=== PATIENT | male | born 1935 | race Caucasian/White ===

== ENCOUNTER → 2016-06-07 | Outpatient (CLI) | payer BC ==
[~2016-06-07] MED LIST: ASPCH81X PO; CMD3 PO; CRG125 PO; LISI-729 PO; NORT25CA PO; SIMV20TA2 PO
[2016-06-07 13:16] LABS: INR 1.9 (0.9-1.1); PROTHROMBIN TIME (PATIENT) 21.1 SECONDS (9.0-12.0)
[2016-06-07 13:36] LABS: BLOOD UREA NITROGEN 17 mg/dl (7-18); GLUCOSE 97 mg/dl (70-99)
[2016-06-07 13:37] LABS: BUN/CREATININE RATIO 18.2 (10-20); CALCIUM 8.9 mg/dl (8.5-10.1); CARBON DIOXIDE 26 mmol/L (21-32); CHLORIDE 108 mmol/L (98-107); CHOLESTEROL 144 mg/dl (0-200); CREATININE 0.93 mg/dl (0.60-1.40); POTASSIUM 4.4 mmol/L (3.5-5.1); SODIUM 142 mmol/L (136-145)
[2016-06-07 13:40] LABS: CHOLESTEROL/HDL RATIO 2.6; HDL CHOLESTEROL 56 mg/dl; TRIGLYCERIDES 81 mg/dl (0-150); VERY LOW DENSITY LIPOPROT CALC 16 mg/dl
== END | disposition home or self-care (01) ==
LOC: C.LABSPEC 12:39
PROVIDERS: ATTEND Internal Medicine
DX: I48.91 Unspecified atrial fibrillation (principal); I42.9 Cardiomyopathy, unspecified; E78.5 Hyperlipidemia, unspecified

== ENCOUNTER → 2016-07-04 | Outpatient (CLI) | payer BC ==
--- NOTE | 2016-07-04 14:26 | DIAGNOSTIC IMAGING REPORT ---
LEFT ANKLE 3 VIEWS HISTORY: Left ankle pain. FALL COMPARISON: None. FINDINGS: There is oblique fracture within the distal left fibula demonstrating up to 3 mm of lateral and posterior displacement. However, the ankle mortise is maintained. There is diffuse soft tissue swelling. No radiopaque foreign bodies. IMPRESSION: Mildly displaced oblique fracture within the distal left fibula. Electronically signed by: Carloz Renae M.D. 07/04/2016 2:25 PM Dictated Date/Time: 07/04/2016 2:24 PM
== END | disposition home or self-care (01) ==
LOC: C.RAD 13:52
PROVIDERS: ATTEND Internal Medicine
DX: S82.432A Displaced oblique fracture of shaft of left fibula, initial encounter for closed fracture (principal); W19.XXXA Unspecified fall, initial encounter

== ENCOUNTER → 2016-07-27 | Outpatient (CLI) | payer BC ==
[2016-07-27 13:29] LABS: PROTHROMBIN TIME (PATIENT) 22.4 SECONDS (9.0-12.0)
== END | disposition home or self-care (01) ==
LOC: C.LABSPEC 12:30
PROVIDERS: ATTEND Internal Medicine
DX: I63.9 Cerebral infarction, unspecified (principal); Z79.01 Long term (current) use of anticoagulants

== ENCOUNTER → 2016-08-30 | Outpatient (CLI) | payer BC ==
[2016-08-30 13:33] LABS: INR 1.6 (0.9-1.1); PROTHROMBIN TIME (PATIENT) 17.2 SECONDS (9.0-12.0)
== END | disposition home or self-care (01) ==
LOC: C.LABSPEC 12:22
PROVIDERS: ATTEND Internal Medicine
DX: Z79.01 Long term (current) use of anticoagulants (principal); I63.9 Cerebral infarction, unspecified

== ENCOUNTER → 2016-09-16 | Outpatient (CLI) | payer BC ==
[2016-09-16 15:41] LABS: INR 3.5 (0.9-1.1); PROTHROMBIN TIME (PATIENT) 39.9 SECONDS (9.0-12.0)
== END | disposition home or self-care (01) ==
LOC: C.LABSPEC 15:10
PROVIDERS: ATTEND Internal Medicine
DX: I63.9 Cerebral infarction, unspecified (principal); Z79.01 Long term (current) use of anticoagulants

== ENCOUNTER → 2016-09-29 | Outpatient (CLI) | payer BC ==
[2016-09-29 12:47] LABS: INR 2.3 (0.9-1.1); PROTHROMBIN TIME (PATIENT) 25.6 SECONDS (9.0-12.0)
[2016-09-29 12:48] LABS: CALCIUM 8.4 mg/dl (8.5-10.1)
[2016-09-29 12:51] LABS: ALT/SGPT 22 U/L (12-78); AST/SGOT 19 U/L (15-37); BLOOD UREA NITROGEN 14 mg/dl (7-18); BUN/CREATININE RATIO 14.9 (10-20); CARBON DIOXIDE 26 mmol/L (21-32); CHLORIDE 110 mmol/L (98-107); CHOLESTEROL 131 mg/dl (0-200); CREATININE 0.92 mg/dl (0.60-1.40); GLUCOSE 94 mg/dl (70-99); POTASSIUM 4.5 mmol/L (3.5-5.1); SODIUM 143 mmol/L (136-145)
[2016-09-29 12:53] LABS: ALB/GLOB RATIO 1.2 (0.9-2); ALKALINE PHOSPHATASE 71 U/L (45-117); CHOLESTEROL/HDL RATIO 2.3; HDL CHOLESTEROL 56 mg/dl; TRIGLYCERIDES 47 mg/dl (0-150); VERY LOW DENSITY LIPOPROT CALC 9 mg/dl
== END | disposition home or self-care (01) ==
LOC: C.LABSPEC 12:20
PROVIDERS: ATTEND Internal Medicine
DX: I63.9 Cerebral infarction, unspecified (principal); Z79.01 Long term (current) use of anticoagulants; I25.10 Atherosclerotic heart disease of native coronary artery without angina pectoris; E78.5 Hyperlipidemia, unspecified; I42.9 Cardiomyopathy, unspecified

== ENCOUNTER → 2016-10-31 | Outpatient (CLI) | payer BC ==
[2016-10-31 13:05] LABS: INR 2.1 (0.9-1.1); PROTHROMBIN TIME (PATIENT) 22.7 SECONDS (9.0-12.0)
== END | disposition home or self-care (01) ==
LOC: C.LABSPEC 12:10
PROVIDERS: ATTEND Internal Medicine
DX: Z79.01 Long term (current) use of anticoagulants (principal); I63.9 Cerebral infarction, unspecified

== ENCOUNTER → 2016-12-02 | Outpatient (CLI) | payer BC ==
[2016-12-02 12:51] LABS: INR 2.2 (0.9-1.1); PROTHROMBIN TIME (PATIENT) 24.1 SECONDS (9.0-12.0)
== END | disposition home or self-care (01) ==
LOC: C.LABSPEC 12:15
PROVIDERS: ATTEND Internal Medicine
DX: Z79.01 Long term (current) use of anticoagulants (principal); I63.9 Cerebral infarction, unspecified

== ENCOUNTER → 2017-01-02 | Outpatient (CLI) | payer BC ==
[2017-01-02 15:47] LABS: INR 2.5 (0.9-1.1); PROTHROMBIN TIME (PATIENT) 28.1 SECONDS (9.0-12.0)
== END | disposition home or self-care (01) ==
LOC: C.LABSPEC 15:04
PROVIDERS: ATTEND Internal Medicine
DX: I63.9 Cerebral infarction, unspecified (principal); Z79.01 Long term (current) use of anticoagulants

== ENCOUNTER → 2017-01-30 | Outpatient (CLI) | payer BC ==
[2017-01-30 14:48] LABS: INR 1.9 (0.9-1.1); PROTHROMBIN TIME (PATIENT) 21.4 SECONDS (9.0-12.0)
[2017-01-30 16:31] LABS: BLOOD UREA NITROGEN 14 mg/dl (7-18); BUN/CREATININE RATIO 15.4 (10-20); CALCIUM 8.7 mg/dl (8.5-10.1); CARBON DIOXIDE 28 mmol/L (21-32); CHLORIDE 107 mmol/L (98-107); CHOLESTEROL 136 mg/dl (0-200); CREATININE 0.92 mg/dl (0.60-1.40); GLUCOSE 88 mg/dl (70-99); POTASSIUM 4.3 mmol/L (3.5-5.1); SODIUM 140 mmol/L (136-145)
[2017-01-30 16:35] LABS: CHOLESTEROL/HDL RATIO 2.2; HDL CHOLESTEROL 61 mg/dl; PROSTATE SPECIFIC ANTIGEN < 0.010 ng/ml (0.000-4.000); TRIGLYCERIDES 66 mg/dl (0-150); VERY LOW DENSITY LIPOPROT CALC 13 mg/dl
== END | disposition home or self-care (01) ==
LOC: C.LABSPEC 14:28
PROVIDERS: ATTEND Internal Medicine
DX: I25.10 Atherosclerotic heart disease of native coronary artery without angina pectoris (principal); E78.5 Hyperlipidemia, unspecified; Z51.81 Encounter for therapeutic drug level monitoring; Z79.01 Long term (current) use of anticoagulants; I63.9 Cerebral infarction, unspecified; C61 Malignant neoplasm of prostate

== ENCOUNTER → 2017-02-07 | Outpatient (CLI) | payer BC | END | disposition home or self-care (01) | LOC: C.LABSPEC 14:47 | PROVIDERS: ATTEND Internal Medicine | DX: Z12.11 Encounter for screening for malignant neoplasm of colon (principal) ==

== ENCOUNTER → 2017-04-05 | Outpatient (CLI) | payer BC ==
[2017-04-05 16:03] LABS: INR 2.3 (0.9-1.1)
== END | disposition home or self-care (01) ==
LOC: C.LABSPEC 14:51
PROVIDERS: ATTEND Internal Medicine
DX: I63.9 Cerebral infarction, unspecified (principal); Z79.01 Long term (current) use of anticoagulants; Z51.81 Encounter for therapeutic drug level monitoring

== ENCOUNTER → 2017-05-08 | Outpatient (CLI) | payer BC ==
[2017-05-08 12:56] LABS: INR 2.7 (0.9-1.1)
== END | disposition home or self-care (01) ==
LOC: C.LABSPEC 12:33
PROVIDERS: ATTEND Internal Medicine
DX: Z79.01 Long term (current) use of anticoagulants (principal); Z51.81 Encounter for therapeutic drug level monitoring

== ENCOUNTER → 2017-08-02 | Outpatient (CLI) | payer BC ==
[2017-08-02 12:58] LABS: BASO % 0.5 %; BASO ABS # 0.03 K/uL (0-0.2); EOS % 1.1 %; EOS ABS # 0.06 K/uL (0-0.5); HEMATOCRIT 44.5 % (42-52); HEMOGLOBIN 15.1 g/dL (14.0-18.0); IG# 0.02 K/uL (0.00-0.02); LYMPH % 23.4 %; LYMPH ABS # 1.32 K/uL (1.2-3.4); MEAN CELL VOLUME 97.2 fL (80-100); MEAN CORPUSCULAR HGB CONC 33.9 g/dl (32-36); MEAN PLATELET VOLUME 12.3 fL (7.4-10.4); MONO % 11.5 %; MONO ABS # 0.65 K/uL (0.11-0.59); NEUT % 63.1 %; NEUT ABS # 3.55 K/uL (1.4-6.5); PLATELET COUNT 177 K/uL (130-400); RED CELL DISTRIBUTION WIDTH CV 13.4 % (11.5-14.5); RED CELL DISTRIBUTION WIDTH SD 47.5 fL (36.4-46.3); WHITE BLOOD COUNT 5.63 K/uL (4.8-10.8)
[2017-08-02 13:04] LABS: INR 2.1 (0.9-1.1)
[2017-08-02 13:23] LABS: ALBUMIN 3.8 gm/dl (3.4-5.0); ALKALINE PHOSPHATASE 88 U/L (45-117); ALT/SGPT 27 U/L (12-78); AST/SGOT 21 U/L (15-37); BLOOD UREA NITROGEN 17 mg/dl (7-18); CALCIUM 9.2 mg/dl (8.5-10.1); CARBON DIOXIDE 30 mmol/L (21-32); CREATININE 0.98 mg/dl (0.60-1.40); GLUCOSE 95 mg/dl (70-99); LDL CHOLESTEROL (DIRECT) 77 mg/dl; POTASSIUM 4.4 mmol/L (3.5-5.1); SODIUM 138 mmol/L (136-145); TOTAL PROTEIN 7.5 gm/dl (6.4-8.2)
[2017-08-02 13:24] LABS: CHOLESTEROL 134 mg/dl (0-200)
== END | disposition home or self-care (01) ==
LOC: C.LABSPEC 12:21
PROVIDERS: ATTEND Internal Medicine
DX: I25.10 Atherosclerotic heart disease of native coronary artery without angina pectoris (principal); I48.91 Unspecified atrial fibrillation; E78.5 Hyperlipidemia, unspecified; E55.9 Vitamin D deficiency, unspecified; I42.9 Cardiomyopathy, unspecified

== ENCOUNTER → 2017-09-01 | Outpatient (CLI) | payer BC ==
[2017-09-01 14:12] LABS: INR 2.7 (0.9-1.1)
== END | disposition home or self-care (01) ==
LOC: C.LABSPEC 12:35
PROVIDERS: ATTEND Internal Medicine
DX: Z79.01 Long term (current) use of anticoagulants (principal); Z51.81 Encounter for therapeutic drug level monitoring; I63.9 Cerebral infarction, unspecified

== ENCOUNTER 2018-08-30 09:24 | Observation (INO) ==
[2018-08-30 10:26] LABS: Basophils # (auto) 0.02 K/uL (0-0.2); Basophils % (auto) 0.2 %; Eosinophils # (auto) 0.23 K/uL (0-0.5); Eosinophils % (auto) 2.6 %; Hematocrit (blood only) 25.6 % (42-52); Hemoglobin 8.9 g/dL (14.0-18.0); Immature Granulocytes # (auto) 0.03 K/uL (0.00-0.02); Immature Granulocytes % (auto) 0.3 %; Lymphocytes # (auto) 1.19 K/uL (1.2-3.4); Lymphocytes % (auto) 13.5 %; Mean Corpuscular Hgb Conc 34.8 g/dL (32-36); Mean Corpuscular Volume 94.1 fL (80-100); Mean Platelet Volume 10.5 fL (7.4-10.4); Monocytes # (auto) 0.96 K/uL (0.11-0.59); Monocytes % (auto) 10.9 %; Neutrophils # (auto) 6.36 K/uL (1.4-6.5); Neutrophils % (auto) 72.5 %; Platelet Count 260 K/uL (130-400); RDW Coefficient of Variation 13.7 % (11.5-14.5); RDW Standard Deviation 46.8 fL (36.4-46.3); Red Blood Count 2.72 M/uL (4.7-6.1); White Blood Count 8.79 K/uL (4.8-10.8)
--- NOTE | 2018-08-30 10:28 | XRay Report ---
XR chest 1V portable CLINICAL HISTORY: Chest Pain pain COMPARISON STUDY: No previous studies for comparison. FINDINGS: Mild cardiomegaly post median sternotomy. Small left pleural effusion. Lungs otherwise appe ar clear. Slight prominence of pulmonary vasculature. IMPRESSION: Mild congestive heart failure. Small left pleural effusion. The above report was generated using voice recognition software. It may contain grammatical, syntax or spelling errors. Electronically signed by: Hesham Melendez M.D. 08/30/2018 10:26 AM
[2018-08-30 10:44] LABS: Bilirubin Direct 0.3 mg/dl (0-0.2); Calcium 8.6 mg/dl (8.5-10.1); Creatinine Clr Calc Pharmacy 58.8 ml/min; Est GFR (African American) 91.6; Est GFR (Non-African American) 79.1; Magnesium 2.1 mg/dl (1.8-2.4)
--- NOTE | 2018-08-30 10:47 | Emergency Department Note ---
Entered by Nazia Butler acting as a scribe for Sung Ledbetter MD History of Present Illness General Chief complaint: Cough Stated complaint: COUGHING Time Seen by Provider: 08/30/18 09:54 Source: patient Limitations: no limitations History of Present Illness Provider complaint: cough Onset (ago): day(s) 2 Location: chest Maximum Pain Intensity: 2 Associated symptoms: + denies other symptoms (diarrhea ) and + other (+white sputum ); no fever/chills, no nausea/vomiting and no shortness of breath Treatments prior to arrival: none The patient is a 83 year old male who presents to the Emergency Room with complaints of a cough that began 2 days prior to arrival. The patient states that he is coughing up white sputum. The patient states that he has pain when he coughs. The patient denies any fevers, chills, nausea, vomiting, shortness of breath, and diarrhea. The patient denies any new weakness or seasonal allergies. The patient states that he had a CABG 1 week prior to arrival. The patient denies trying any antihistamines. Home Medications Home Medications Medication Instructions Recorded Confirmed Type cholecalciferol (vitamin D3) 2,000 unit PO QAM 08/20/18 08/30/18 History [Vitamin D3] multivitamin 1 cap PO QAM 08/20/18 08/30/18 History acetaminophen [Tylenol Extra 500 mg PO Q6H PRN 08/30/18 08/30/18 History Strength] aspirin 81 mg PO QAM 08/30/18 08/30/18 History carvedilol 12.5 mg PO BIDM 08/30/18 08/30/18 History docusate sodium [Colace] 100 mg PO QAM 08/30/18 08/30/18 History furosemide 20 mg PO UD 08/30/18 08/30/18 History metoprolol tartrate 75 mg PO QAM 08/30/18 08/30/18 History potassium chloride 10 meq PO TID 08/30/18 08/30/18 History simvastatin 40 mg PO HS 08/30/18 08/30/18 History warfarin 1 mg PO 2XWK 08/30/18 08/30/18 History warfarin 2 mg PO 5XWK 08/30/18 08/30/18 History Allergies Allergy/AdvReac Type Severity Reaction Status Date / Time No Known Allergies Allergy Unverified 08/30/18 11:02 Past Med/Surg History Medical History Cardiomyopathy Multi-vessel coronary artery stenosis No significant active problems No significant family history Surgical History S/P CABG x 1 Social History Preferred Language: Wallisian Communication Ability: Effective Etcher Photoengraving Required: No Beliefs That Will Affect Care: None Current Living Situation: Alone Other Information That Helps Us Care for You: No Feels Safe at Home: Yes Safety Concerns: Feels Safe At This Time Smoking Status: Never smoker Do You Dip or Chew Tobacco: No Second Hand Exposure: No Tobacco Cessation Education Requested by Patient: No Hx Alcohol Use: No Hx Substance Use: No Review of Systems See HPI for pertinent positives & negatives. and A total of 10 systems reviewed and were otherwise negative Physical Exam Vital Signs Vital Signs - 24 hr 08/30/18 09:45 08/30/18 10:06 08/30/18 10:22 Temperature 36.6 C Temperature Source Oral Sepsis Recent Fever Within 48 Hours No Sepsis New/Unexplained Change in Mental Status No Sepsis Action Taken by Nursing No Action Required Pulse Rate 104 H Pulse Rate [Left Finger] 107 H Respiratory Rate 20 18 Respiratory Effort / Characteristics Respiratory Depth Respiratory Pattern Blood Pressure 104/64 Blood Pressure [Left Arm] 151/78 H Blood Pressure Mean 77 Blood Pressure Mean [Left Arm] 102 Pulse Oximetry 98 94 95 Oxygen Delivery Method Room Air Room Air Room Air 08/30/18 11:12 08/30/18 12:20 08/30/18 12:51 Temperature Temperature Source Sepsis Recent Fever Within 48 Hours Sepsis New/Unexplained Change in Mental Status Sepsis Action Taken by Nursing Pulse Rate Pulse Rate [Left Finger] 108 H 105 H Respiratory Rate 22 20 Respiratory Effort / Characteristics Spontaneous SOB on Exertion Respiratory Depth Normal Respiratory Pattern Tachypnea Blood Pressure Blood Pressure [Left Arm] 141/77 H 158/93 H Blood Pressure Mean Blood Pressure Mean [Left Arm] 98 114 Pulse Oximetry 95 94 Oxygen Delivery Method Room Air Room Air Room Air GENERAL: Awake, alert, fatigued appearing, no distress. HENT: Normocephalic, atraumatic. TM's normal. Oropharynx unremarkable. EYES: PERRL. EOMI. Normal conjunctiva. Sclera non-icteric. NECK: Supple. No nuchal rigidity. FROM. No JVD or bruit. RESPIRATORY: Diminished breath sounds at bases otherwise clear. CARDIAC: RRR. No murmur. ABDOMEN: Soft, non distended. No tenderness to palpation. No rebound or guarding. No masses. RECTAL: Deferred. MUSCULOSKELETAL: Unremarkable. Scant lower extremity edema. No discoloration. NEURO: Normal sensorium. No sensory or motor deficits noted. SKIN: No rash or jaundice noted. Chest wall incision site healing appropriately without infection. LYMPH: No adenopathy. Course 1018: The patient was evaluated in room B12B, and a complete history and physical examination were performed. 1130: I checked on the patient and updated him on his results. 1229: I [facility] the [facility] will [facility] the patient for further hospitalization. Consultations [facility] Time: 12:29 Administered Medications Benzonatate (Tessalon Perle) 100 mg PO TID PRN PRN Reason: cough Stop: 09/29/18 15:42 Last Admin: 08/30/18 16:33 Dose: 100 mg Documented by: [id number] Docusate Sodium (Colace) 100 mg PO QAM EDWIGE Stop: 09/29/18 14:31 Last Admin: 08/30/18 16:36 Dose: 100 mg Documented by: [id number] Discontinued Medications Furosemide (Lasix) 20 mg IV NOW STA Stop: 08/30/18 11:56 Last Admin: 08/30/18 12:08 Dose: 20 mg Documented by: [id number] Medical Decision Making Differential Diagnosis Differential diagnoses includes acute coronary syndrome, pulmonary embolus, aortic dissection, musculoskeletal pain, pneumonia, pleural effusion, pneumothorax, gastritis, peptic ulcer disease. Medical Records Attestation: I reviewed the patient's medical records. Home Medications Current Medication List: was personally reviewed by me Laboratory Data Attestation: I reviewed the patient's lab results. Result diagrams: 08/30/18 10:19 08/30/18 10:19 Lab Results 08/30/18 08/30/18 08/30/18 Range/Units 10:19 10:19 10:19 WBC 8.79 (4.8-10.8) K/uL RBC 2.72 L (4.7-6.1) M/uL Hgb 8.9 L (14.0-18.0) g/dL Hct 25.6 L (42-52) % MCV 94.1 (80-100) fL MCH 32.7 (25-34) pg MCHC 34.8 (32-36) g/dL RDW Std Deviation 46.8 H (36.4-46.3) fL RDW Coeff of Ankita 13.7 (11.5-14.5) % Plt Count 260 (130-400) K/uL MPV 10.5 H (7.4-10.4) fL Immature Gran % (Auto) 0.3 % Neut % (Auto) 72.5 % Lymph % (Auto) 13.5 % [place] % (Auto) 10.9 % Eos % (Auto) 2.6 % Baso % (Auto) 0.2 % Immature Gran # (Auto) 0.03 H (0.00-0.02) K/uL Neut # (Auto) 6.36 (1.4-6.5) K/uL Lymph # (Auto) 1.19 L (1.2-3.4) K/uL [place] # (Auto) 0.96 H (0.11-0.59) K/uL Eos # (Auto) 0.23 (0-0.5) K/uL Baso # (Auto) 0.02 (0-0.2) K/uL PT 36.7 H (9.0-12.0) Seconds INR 3.9 H (0.9-1.1) Sodium 141 (136-145) mmol/L Potassium 4.0 (3.5-5.1) mmol/L Chloride 109 H (98-107) mmol/L Carbon Dioxide 25 (21-32) mmol/L Anion Gap 7.0 (3-11) BUN 18 (7-18) mg/dl Creatinine 0.89 (0.6-1.4) mg/dl Est Cr Clr Drug Dosing 58.8 ml/min Est GFR ( Amer) 91.6 Est GFR (Non-Af Amer) 79.1 BUN/Creatinine Ratio 20.0 (10-20) Glucose 103 H (70-99) mg/dl Calcium 8.6 (8.5-10.1) mg/dl Phosphorus 3.5 (2.5-4.9) mg/dl Magnesium 2.1 (1.8-2.4) mg/dl Total Bilirubin 1.0 (0.2-1) mg/dl Direct Bilirubin 0.3 H (0-0.2) mg/dl AST 19 (15-37) U/L ALT 18 (12-78) U/L Alkaline Phosphatase 57 (45-117) U/L Troponin I 0.364 H* (0-0.045) ng/ml NT-Pro-B Natriuret Pep 2039 H (0-1800) pg/ml Total Protein 6.3 L (6.4-8.2) gm/dl Albumin 3.0 L (3.4-5.0) gm/dl Globulin 3.3 (2.5-4.0) gm/dl Albumin/Globulin Ratio 0.9 (0.9-2) Lipase 363 (73-393) U/L Imaging Data Radiologist's Impression: Radiology results as stated below per my review and the radiologist's interpretation: XR chest 1V portable CLINICAL HISTORY: Chest Pain pain COMPARISON STUDY: No previous studies for comparison. FINDINGS: Mild cardiomegaly post median sternotomy. Small left pleural effusion. Lungs otherwise appear clear. Slight prominence of pulmonary vasculature. IMPRESSION: Mild congestive heart failure. Small left pleural effusion. The above report was generated using voice recognition software. It may contain grammatical, syntax or spelling errors. Electronically signed by: Hesham Melendez M.D. 08/30/2018 10:26 AM ECG Data Attestation: I personally reviewed and interpreted this ECG as follows: Indication: other (cough) Rate (beats per minute): 101 Rhythm: sinus tachycardia Findings: + LBBB; no acute ischemic change and no ectopy Blood Pressure Blood Pressure Findings: Elevated blood pressure Blood Pressure Disposition: elevated BP felt to be situational MDM Narrative The patient is a pleasant 83 y/o gentleman with a pmhx of severe multivessel CAD [place] [facility] [place] and previously resolved LV dysfunction, prior CVA, hypertension, dyslipidemia, paroxysmal atrial fibrillation on Coumadin, chronic left bundle branch block who presents to the ED with semiproductive cough with clear sputum over the past couple days per HPI. On arrival the patient is in NAD, AFVSS. EKG demonstrates baseline LBBB without overt acute ischemia (no Sgarbossa criteria). CXR with prominence of pulmonary vasculature consistent with mild congestive heart failure. There is also a small left pleural effusion. WBC within normal limits. H/H 8.9/25.6 which is lower than prior values in our system from July however reasonable for the patient's postop status. Platelets is within normal limits. INR 3.9. Ch emistry without acidosis. LFTs and electrolytes unremarkable. Troponin is elevated at 0.364 which is likely related to the patient's recent CABG. BNP 2K without prior values for comparison. Patient's symptoms are likely related to mild volume overload in the setting of the patient's recent CABG. Patient was given initial dose of 20 mill grams of IV Lasix. Given the patient's comorbidities and recent postop status reasonable to admit the patient for close monitoring. Case was discussed with Dr. Carson, [facility] hospitalist, who will evaluate the patient for admission. Impression & Plan Fluid overload Discharge Plan Visit Data *Final* Discharge Date/Time: 08/30/18 15:19 Chief Complaint: Cough Stated Complaint: COUGHING ED Provider: Sung Ledbetter Discharge Problem: Fluid overload Patient Disposition: Admitted As Inpatient Discharge Instructions Interventions: ED Discharge Assessment Last Done: 08/30/18 15:19 Discharge Problem: Fluid overload Qualifiers: Hypervolemia type: unspecified Qualified Code(s): E87.70 - Fluid overload, unspecified The scribe's documentation has been prepared under my direction and personally reviewed by me in its entirety. I confirm that the note above accurately ref lects all work, treatment, procedures, and medical decision making performed by me.
[2018-08-30 10:49] LABS: Albumin Globulin Ratio 0.9 (0.9-2); Globulin 3.3 gm/dl (2.5-4.0); Phosphorus 3.5 mg/dl (2.5-4.9); Total Protein 6.3 gm/dl (6.4-8.2); Troponin I 0.364 ng/ml (0-0.045)
[2018-08-30 10:52] LABS: Prothrombin Time 36.7 Seconds (9.0-12.0)
[2018-08-30 11:04] LABS: INR 3.9 (0.9-1.1)
[2018-08-30] MEDS ORDERED: FUROSEMIDE 40 MG/4 ML VIAL IV STA (11:55)
--- NOTE | 2018-08-30 14:35 | History & Physical Report ---
Date of Service August 30, 2018 Assessment & Plan (1) Cough: Patient with cough x2 days and a scratchy/sore throat, no fevers or chills at home. Sputum is clear to white. He has been afebrile at home and here. No leukocytosis or evidence of pneumonia on examination or on imaging. Cough could be secondary to mild volume overload as below, versus viral respiratory illness. He is not hypoxic or in any respiratory distress Given CABG 6 days ago, will admit overnight for observation -Gentle IV diuresis with Lasix 20 mg IV twice daily today and then revert to p.o. Lasix tomorrow -Tessalon Perles 100 mg p.o. 3 times daily PRN cough (2) Cardiomyopathy: Previous cardiomyopathy many years ago with EF of 20-25% which then improved to 43% on recent nuclear medicine stress test prior to CABG. His echocardiogram here is now with LVEF 50-55% which is improved since his CABG. Cardiomyopathy is now resolved. (3) Chronic systolic CHF (congestive heart failure): As above in "cardiomyopathy" (4) CAD (coronary artery disease), [place] coronary artery: With recent four-vessel CABG at [facility] on 08/23 as above -Continue aspirin, simvastatin, [id number] patient was prescribed metoprolol 75 mg p.o. twice daily from [facility] but was previously on carvedilol- he was not aware he was supposed to stop taking the carvedilol -Will convert him to metoprolol tartrate here 75 mg p.o. twice daily and discontinue the carvedilol -Has upcoming follow-up appointment scheduled with his surgeon/president here and with the cardiothoracic surgery team at [facility] Saphenous vein graft harvest site and midline sternotomy wounds are healing well (5) Paroxysmal atrial fibrillation: Patient is in a normal sinus rhythm here -Is on Coumadin for anticoagulation-INR is elevated at 3.9 today -Hold Coumadin today and likely restart tomorrow -Continue beta-sapphire for rate control as above (6) Hyperlipidemia: -Continue statin (7) HTN (hypertension), benign: Blood pressure was initially elevated on admission and given IV Lasix -Continue beta-sapphire, lisinopril (8) S/P CABG x 4: As above (9) History of CVA (cerebrovascular accident): 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 twice daily along with potassium supplementation for 1 week after CABG With mild volume overload here possibly contributing to his cough -IV diuresis today as above and then revert to p.o. Lasix tomorrow (12) Elevated troponin: Mild elevation in troponin at 0.3 on admission which then trended downward after admission-likely secondary to recent CABG His only chest pain is that of his midline sternotomy wound that hurts with coughing -Trend troponin one more time (13) Fluid overload: Plan as above with diuresis (14) Pericardial friction rub present: Pericardial rub heard on examination and is likely secondary to recent CABG Limited echo obtained which shows a possible very small pericardial effusion versus fat pad without evidence of tamponade physiology Follow clinically (15) Anemia: Hemoglobin is 8.9 here down from baseline of fourteen 1 month ago and is likely secondary to acute blood loss anemia from recent bypass surgery No need for transfusion at this point -Follow CBC in the morning (16) DVT prophylaxis: Coumadin Disposition-admit to telemetry overnight for observation and likely discharge home tomorrow if feeling improved History of Present Illness Chief Complaint: Cough Primary Care Provider: Kamar Berry MD This patient is an 83-year-old male with a history of severe CAD status post 4vCABG on 08/23/2018 at [facility] [place], PAF, chronic systolic CHF, HL, HTN, history of CVA, prostate cancer, and kidney stones, who presents to the ER with 2 days of cough productive of clear to white sputum and a sore throat. He has had some mild shortness of breath as well. He denies any pleuritic type chest pain but does have pain at the site of his sternotomy with coughing. He denies fevers/chills/sweats, denies hemoptysis, denies lightheadedness or headache, no dizziness, denies abdominal pain, denies nausea/vomiting/diarrhea. He denies any sick contacts. He contacted his cardiothoracic surgeon at [facility] but did not hear back immediately and therefore contacted his primary care physician who directed him to come to the ER to get checked out. In the ER, his chest x-ray showed a small left pleural effusion and some mild pulmonary vascular congestion. He had a mildly elevated troponin at 0.36 and a elevated proBNP at 2000 with no baseline to compare to. The patient reports he did not take any of his morning medications today, and furthermore, he reports he has been taking both his carvedilol and the metoprolol prescribed by [facility]. Allergies Allergy/AdvReac Type Severity Reaction Status Date / Time No Known Allergies Allergy Unverified 08/30/18 11:02 Home Medications Home Medications Medication Instructions Recorded Confirmed Type cholecalciferol (vitamin D3) 2,000 unit PO QAM 08/20/18 08/30/18 History [Vitamin D3] multivitamin 1 cap PO QAM 08/20/18 08/30/18 History acetaminophen [Tylenol Extra 500 mg PO Q6H PRN 08/30/18 08/30/18 History Strength] aspirin 81 mg PO QAM 08/30/18 08/30/18 History carvedilol 12.5 mg PO BIDM 08/30/18 08/30/18 History docusate sodium [Colace] 100 mg PO QAM 08/30/18 08/30/18 History furosemide 20 mg PO UD 08/30/18 08/30/18 History metoprolol tartrate 75 mg PO BID 08/30/18 08/30/18 History potassium chloride 10 meq PO TID 08/30/18 08/30/18 History simvastatin 40 mg PO HS 08/30/18 08/30/18 History warfarin 1 mg PO 2XWK 08/30/18 08/30/18 History warfarin 2 mg PO 5XWK 08/30/18 08/30/18 History Past Med/Surg History Medical History CAD (coronary artery disease), [place] coronary artery Cardiomyopathy Chronic anticoagulation Chronic systolic CHF (congestive heart failure) HTN (hypertension), benign History of CVA (cerebrovascular accident) History of nephrolithiasis History of prostate cancer Hyperlipidemia Multi-vessel coronary artery stenosis No significant active problems No significant family history Paroxysmal atrial fibrillation Surgical History History of lithotripsy History of prostatectomy History of tonsillectomy S/P CABG x 4 Family History Other Family history non-contributory Social History Preferred Language: Czech Communication Ability: Effective 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 Required: No Beliefs That Will Affect Care: None Current Living Situation: Alone Other Information That Helps Us Care for You: No Feels Safe at Home: Yes Safety Concerns: Feels Safe At This Time Smoking Status: Never smoker Do You Dip or Chew Tobacco: No Second Hand Exposure: No Tobacco Cessation Education Requested by Patient: No Hx Alcohol Use: No Hx Substance Use: No Review of Systems Review of Systems: All systems reviewed & are unremarkable except as noted in HPI & below Physical Exam Constitutional: WD/WN, vitals as above Eyes: PERRL, conjunctivae normal, anicteric sclerae ENMT: external ear and nose normal, oropharynx normal Neck: trachea midline, no thyromegaly Respiratory: normal respiratory effort and + cough Auscultation: + diminished lung sounds (At the left base) and + crackles (Mild, bibasilar); no rhonchi and no wheezes Cardiovascular: Rate/Rhythm: regular rhythm and + tachycardic Heart Sounds: + cardiac rub; no murmur Extremities: + edema (1+ pitting edema of the legs bilaterally) Chest (Breasts): Chest: + abnormal inspection of chest (Midline sternotomy incision healing well, no surrounding erythema or drainage) Gastrointestinal (Abdomen): normal bowel sounds, soft, nontender, no hepa tosplenomegaly Inspection/Auscultation: + abdomen abnormal to inspection (Dressings in place at sites of previous chest tubes clean dry and intact) Musculoskeletal: Extremities: + extremities abnormal to inspection (Left saphenous vein graft harvest incision site is healing, no drainage or erythema), no cyanosis and no clubbing Skin: no rashes, warm and dry Neurologic: moves all extremities and awake; no focal motor deficits Psychiatric: A+Ox3, euthymic affect Results & Data Vital Signs (Past 12 Hours) Vital Signs Temp Pulse Pulse Resp BP BP Pulse Ox 08/30/18 12:51 105 H 20 158/93 H 94 08/30/18 11:12 108 H 22 141/77 H 95 08/30/18 10:22 107 H 18 151/78 H 95 08/30/18 10:06 94 08/30/18 09:45 36.6 C 104 H 20 104/64 98 Laboratory Results 08/30/18 08/30/18 08/30/18 Range/Units 19:52 10:19 10:19 WBC (4.8-10.8) K/uL RBC (4.7-6.1) M/uL Hgb (14.0-18.0) g/dL Hct (42-52) % MCV (80-100) fL MCH (25-34) pg MCHC (32-36) g/dL RDW Std Deviation (36.4-46.3) fL RDW Coeff of Ankita (11.5-14.5) % Plt Count (130-400) K/uL MPV (7.4-10.4) fL Immature Gran % (Auto) % Neut % (Auto) % Lymph % (Auto) % [place] % (Auto) % Eos % (Auto) % Baso % (Auto) % Immature Gran # (Auto) (0.00-0.02) K/uL Neut # (Auto) (1.4-6.5) K/uL Lymph # (Auto) (1.2-3.4) K/uL [place] # (Auto) (0.11-0.59) K/uL Eos # (Auto) (0-0.5) K/uL Baso # (Auto) (0-0.2) K/uL PT 36.7 H (9.0-12.0) Seconds INR 3.9 H (0.9-1.1) Sodium 141 (136-145) mmol/L Potassium 4.0 (3.5-5.1) mmol/L Chloride 109 H (98-107) mmol/L Carbon Dioxide 25 (21-32) mmol/L Anion Gap 7.0 (3-11) BUN 18 (7-18) mg/dl Creatinine 0.89 (0.6-1.4) mg/dl Est Cr Clr Drug Dosing 58.8 ml/min Est GFR ( Amer) 91.6 Est GFR (Non-Af Amer) 79.1 BUN/Creatinine Ratio 20.0 (10-20) Glucose 103 H (70-99) mg/dl Calcium 8.6 (8.5-10.1) mg/dl Phosphorus 3.5 (2.5-4.9) mg/dl Magnesium 2.1 (1.8-2.4) mg/dl Total Bilirubin 1.0 (0.2-1) mg/dl Direct Bilirubin 0.3 H (0-0.2) mg/dl AST 19 (15-37) U/L ALT 18 (12-78) U/L Alkaline Phosphatase 57 (45-117) U/L Troponin I 0.295 H* 0.364 H* (0-0.045) ng/ml NT-Pro-B Natriuret Pep 2039 H (0-1800) pg/ml Total Protein 6.3 L (6.4-8.2) gm/dl Albumin 3.0 L (3.4-5.0) gm/dl Globulin 3.3 (2.5-4.0) gm/dl Albumin/Globulin Ratio 0.9 (0.9-2) Lipase 363 (73-393) U/L 08/30/18 Range/Units 10:19 WBC 8.79 (4.8-10.8) K/uL RBC 2.72 L (4.7-6.1) M/uL Hgb 8.9 L (14.0-18.0) g/dL Hct 25.6 L (42-52) % MCV 94.1 (80-100) fL MCH 32.7 (25-34) pg MCHC 34.8 (32-36) g/dL RDW Std Deviation 46.8 H (36.4-46.3) fL RDW Coeff of Ankita 13.7 (11.5-14.5) % Plt Count 260 (130-400) K/uL MPV 10.5 H (7.4-10.4) fL Immature Gran % (Auto) 0.3 % Neut % (Auto) 72.5 % Lymph % (Auto) 13.5 % [place] % (Auto) 10.9 % Eos % (Auto) 2.6 % Baso % (Auto) 0.2 % Immature Gran # (Auto) 0.03 H (0.00-0.02) K/uL Neut # (Auto) 6.36 (1.4-6.5) K/uL Lymph # (Auto) 1.19 L (1.2-3.4) K/uL [place] # (Auto) 0.96 H (0.11-0.59) K/uL Eos # (Auto) 0.23 (0-0.5) K/uL Baso # (Auto) 0.02 (0-0.2) K/uL PT (9.0-12.0) Seconds INR (0.9-1.1) Sodium (136-145) mmol/L Potassium (3.5-5.1) mmol/L Chloride (98-107) mmol/L Carbon Dioxide (21-32) mmol/L Anion Gap (3-11) BUN (7-18) mg/dl Creatinine (0.6-1.4) mg/dl Est Cr Clr Drug Dosing ml/min Est GFR ( Amer) Est GFR (Non-Af Amer) BUN/Creatinine Ratio (10-20) Glucose (70-99) mg/dl Calcium (8.5-10.1) mg/dl Phosphorus (2.5-4.9) mg/dl Magnesium (1.8-2.4) mg/dl Total Bilirubin (0.2-1) mg/dl Direct Bilirubin (0-0.2) mg/dl AST (15-37) U/L ALT (12-78) U/L Alkaline Phosphatase (45-117) U/L Troponin I (0-0.045) ng/ml NT-Pro-B Natriuret Pep (0-1800) pg/ml Total Protein (6.4-8.2) gm/dl Albumin (3.4-5.0) gm/dl Globulin (2.5-4.0) gm/dl Albumin/Globulin Ratio (0.9-2) Lipase (73-393) U/L Diagnostic Findings Chest x-ray image personally reviewed by me and agree with the following report: XR chest 1V portable CLINICAL HISTORY: Chest Pain pain COMPARISON STUDY: No previous studies for comparison. FINDINGS: Mild cardiomegaly post median sternotomy. Small left pleural effusion. Lungs otherwise appear clear. Slight prominence of pulmonary vasculature. IMPRESSION: Mild congestive heart failure. Small left pleural effusion. ECG Additional Comments: Sinus tachycardia, rate 101, left bundle branch block Code Status & VTE Plan Code Status DNR/DNI VTE Prophylaxis Plan VTE Prophylaxis will be ordered: Yes (1) Fluid overload Hypervolemia type: unspecified Qualified Code(s): E87.70 - Fluid overload, unspecified
[2018-08-30] MEDS ORDERED: MoRPHine SULFATE 2 MG/ML CARP IV PRN (15:43)
[2018-08-30] MEDS ORDERED: ACETAMINOPHEN 500 MG TAB PO PRN (15:43)
[2018-08-30] MEDS ORDERED: NITROGLYCERIN SL 0.4 MG/TAB TAB SL PRN (15:43)
[2018-08-30] MEDS: BENZONATATE 100 MG CAPSULE PO PRN (16:33)
[2018-08-30] MEDS: DOCUSATE SODIUM 100 MG CAP PO SCH (16:36)
--- NOTE | 2018-08-30 16:56 | Cardiology Consultation ---
Date of Consultation August 30, 2018 Assessment & Plan (1) Fluid overload: 2. 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 History of resolved cardiomyopathy 4. Chronic LBBB 5. History of CAD 6. Paroxysmal atrial fibrillation 7. Hypertension 8. Dyslipidemia Patient with multivessel CAD recently underwent CABG x4 on 08/23/18. Surgical course was uncomplicated and patient was discharged home on Monday in stable condition. Past 2 days has developed progressive cough especially with lying flat. Otherwise asymptomatic from cardiac standpoint. He was referred to ED by PCP. On exam he has evidence of mild vascular congestion. Agree with diuresis. Follow I&Os and daily weights. Will review echo. History of Present Illness Attending Physician: Francine Carson MD History of Present Illness Mr. Garcia is an 83 year old male with a medical history significant for prior cardiomyopathy with resolved LV dysfunction, history of CVA, hypertension, dyslipidemia, paroxysmal atrial fibrillation, left bundle branch block and severe mutlivessel coronary disease status post CABG x4 (DURON to LAD, SVG to PDA, SVG to OM and SVG to diagonal) [place] [facility] underwent Lexiscan SPECT for exertional chest pain which was abnormal showing a large perfusion defect involving mid to distal anterior septal and inferior saldana with significant reversible component, LVEF 43% and apical akinesis. He underwent cardiac catheterization with Dr. Portillo on 08/20/18 which demonstrated severe multivessel coronary artery disease (95% mid LAD, 50% mid LAD at bifurcation of second diagonal with 80% ostial stenosis, 90% proximal RCA, 70% proximal OM2). He was referred to CT surgery at [facility] where underwent coronary artery bypass grafting x 4 on 08/23/18. Surgical course was uncomplicated. He was discharged home on 08/27/18 and was feeling well. Over the past two days he developed a cough which is most bothersome when lying down. He was referred to the ED by his PCP. Chest xray demonstrates mild pulmonary vascular congestion with small left sided pleural effusion. ProBNP elevated at 2000. He denies shortness of breath, orthopnea or PND. He has noticed some mild lower extremity edema. He has chest soreness with coughing but no exertional chest pain. No palpitations, lightheadedness, near syncope or syncope. No abnormal bleeding. Cardiac medications upon discharge from [facility] include: aspirin 81 mg daily, furosemide 20 mg twice daily, metoprolol tartrate 75 mg twice daily, simvastatin 40 mg daily, and warfarin. Allergies Allergy/AdvReac Type Severity Reaction Status Date / Time No Known Allergies Allergy Unverified 08/30/18 11:02 Home Medications Home Medications Medication Instructions Recorded Confirmed Type cholecalciferol (vitamin D3) 2,000 unit PO QAM 08/20/18 08/30/18 History [Vitamin D3] multivitamin 1 cap PO QAM 08/20/18 08/30/18 History acetaminophen [Tylenol Extra 500 mg PO Q6H PRN 08/30/18 08/30/18 History Strength] aspirin 81 mg PO QAM 08/30/18 08/30/18 History docusate sodium [Colace] 100 mg PO QAM 08/30/18 08/30/18 History metoprolol tartrate 75 mg PO BID 08/30/18 08/30/18 History potassium chloride 10 meq PO TID 08/30/18 08/30/18 History simvastatin 40 mg PO HS 08/30/18 08/30/18 History benzonatate [Tessalon Perles] 100 mg PO TID PRN #20 cap 08/31/18 Rx furosemide 40 mg PO DAILY #60 tab 08/31/18 Rx warfarin 1 mg PO DAILY #0 tab 08/31/18 08/30/18 Rx Patient History Family History Other Family history non-contributory Social History Preferred Language: Monegasque Communication Ability: Effective Ply Splicer Required: No Beliefs That Will Affect Care: None marital status: Single Current Living Situation: Alone Other Information That Helps Us Care for You: No Feels Safe at Home: Yes Safety Concerns: Feels Safe At This Time Smoking Status: Never smoker Do You Dip or Chew Tobacco: No Second Hand Exposure: No Tobacco Cessation Education Requested by Patient: No Hx Alcohol Use: No Hx Substance Use: No Review of Systems Review of Systems: All systems reviewed & are unremarkable except as noted in HPI & below Physical Exam Physical Exam: General: No acute distress, comfortable. HEENT: Head is normal. PERRLA. EOMI. Sclerae anicteric. Ears, nose and throat unremarkable. Mucous membranes moist. Neck: No appreciable JVD. Lungs: Clear to auscultation bilaterally without rales, rhonchi or wheezes. Cardiac: Regular rate and rhythm. S1-S2 normal. No appreciable murmur, gallop or rub. Midsternal incision clean, dry and intact without drainage or periwound inflammation Abdomen: Soft and nontender. Bowel sounds normal. No mass or organomegaly. No abdominal bruit. Extremities/vascular: --Well perfused. Trace to 1+ lower extremity edema 1/2 way to knees bilaterally --Radial, DP and PT pulses 2+ bilaterally --Incisions from vein harvesting bilaterally clean, dry and intact, no periwound inflammation or drainage Neurologic: Nonfocal Psychiatric: Affect appropriate. Alert and oriented. Results & Data Vital Signs (Past 12 Hours) Vital Signs Temp Pulse Pulse Resp BP BP Pulse Ox 08/30/18 15:43 36.7 C 103 H 18 149/73 H 94 08/30/18 15:21 105 H 20 138/76 93 08/30/18 14:36 104 H 20 150/75 H 93 08/30/18 12:51 105 H 20 158/93 H 94 08/30/18 11:12 108 H 22 141/77 H 95 08/30/18 10:22 107 H 18 151/78 H 95 08/30/18 10:06 94 08/30/18 09:45 36.6 C 104 H 20 104/64 98 Laboratory Results Laboratory Results - last 24 hr 08/30/18 08/30/18 08/30/18 10:19 10:19 10:19 WBC 8.79 RBC 2.72 L Hgb 8.9 L Hct 25.6 L MCV 94.1 MCH 32.7 MCHC 34.8 RDW Std Deviation 46.8 H RDW Coeff of Ankita 13.7 Plt Count 260 MPV 10.5 H Immature Gran % (Auto) 0.3 Neut % (Auto) 72.5 Lymph % (Auto) 13.5 [place] % (Auto) 10.9 Eos % (Auto) 2.6 Baso % (Auto) 0.2 Immature Gran # (Auto) 0.03 H Neut # (Auto) 6.36 Lymph # (Auto) 1.19 L [place] # (Auto) 0.96 H Eos # (Auto) 0.23 Baso # (Auto) 0.02 PT 36.7 H INR 3.9 H Sodium 141 Potassium 4.0 Chloride 109 H Carbon Dioxide 25 Anion Gap 7.0 BUN 18 Creatinine 0.89 Est Cr Clr Drug Dosing 58.8 Est GFR ( Amer) 91.6 Est GFR (Non-Af Amer) 79.1 BUN/Creatinine Ratio 20.0 Glucose 103 H Calcium 8.6 Phosphorus 3.5 Magnesium 2.1 Total Bilirubin 1.0 Direct Bilirubin 0.3 H AST 19 ALT 18 Alkaline Phosphatase 57 Troponin I 0.364 H* NT-Pro-B Natriuret Pep 2039 H Total Protein 6.3 L Albumin 3.0 L Globulin 3.3 Albumin/Globulin Ratio 0.9 Lipase 363 ECG Additional Comments: EKG 08/30/18: Sinus tachycardia, left bundle branch block (1) Fluid overload Hypervolemia type: unspecified Qualified Code(s): E87.70 - Fluid overload, unspecified
[2018-08-30] MEDS ORDERED: CARVEDILOL 12.5 MG TAB PO SCH (17:00)
[2018-08-30] MEDS: ASPIRIN 81 MG ECTAB PO SCH (17:14)
[2018-08-30] MEDS ORDERED: FUROSEMIDE 20 MG in SYRINGE 0 ML IV SCH (19:30)
[2018-08-30] MEDS ORDERED: SIMVASTATIN 40 MG TAB PO SCH (21:00)
[2018-08-31] MEDS ORDERED: FUROSEMIDE 20 MG TAB PO SCH ×2 (06:00→09:00)
[2018-08-31 06:21] LABS: Basophils # (auto) 0.02 K/uL (0-0.2); Basophils % (auto) 0.2 %; Eosinophils # (auto) 0.21 K/uL (0-0.5); Eosinophils % (auto) 2.4 %; Hemoglobin 9.1 g/dL (14.0-18.0); Immature Granulocytes # (auto) 0.03 K/uL (0.00-0.02); Immature Granulocytes % (auto) 0.3 %; Lymphocytes # (auto) 0.95 K/uL (1.2-3.4); Mean Corpuscular Hgb Conc 33.7 g/dL (32-36); Mean Corpuscular Volume 95.7 fL (80-100); Mean Platelet Volume 10.3 fL (7.4-10.4); Monocytes # (auto) 0.99 K/uL (0.11-0.59); Monocytes % (auto) 11.4 %; Neutrophils # (auto) 6.45 K/uL (1.4-6.5); Neutrophils % (auto) 74.7 %; Platelet Count 280 K/uL (130-400); RDW Coefficient of Variation 13.8 % (11.5-14.5); RDW Standard Deviation 47.5 fL (36.4-46.3); Red Blood Count 2.82 M/uL (4.7-6.1); White Blood Count 8.65 K/uL (4.8-10.8)
[2018-08-31] MEDS: BENZONATATE 100 MG CAPSULE PO PRN (06:22)
[2018-08-31 06:42] LABS: Prothrombin Time 35.1 Seconds (9.0-12.0)
[2018-08-31 06:43] LABS: INR 3.8 (0.9-1.1)
[2018-08-31 06:47] LABS: BUN Creatinine Ratio 24.4 (10-20); Calcium 8.3 mg/dl (8.5-10.1); Creatinine Clr Calc Pharmacy 60.1 ml/min; Est GFR (African American) 92.5; Est GFR (Non-African American) 79.8; Magnesium 2.1 mg/dl (1.8-2.4); Potassium 3.6 mmol/L (3.5-5.1)
[2018-08-31 07:10] LABS: Troponin I 0.255 ng/ml (0-0.045)
--- NOTE | 2018-08-31 07:48 | Hospitalist Progress Note ---
Date of Service August 31, 2018 Assessment & Plan (1) Cough: . Cough could be secondary to mild volume overload as below, versus viral respiratory illness. He is not hypoxic or in any respiratory distress Given CABG one week ago, will admit overnight for observation -Gentle IV diuresis with Lasix 20 mg IV twice daily today and then revert to p.o. Lasix tomorrow -Tessalon Perles 100 mg p.o. 3 times daily PRN cough (2) Cardiomyopathy: Previous cardiomyopathy many years ago with EF of 20-25% which then improved to 43% on recent nuclear medicine stress test prior to CABG. His echocardiogram here is now with LVEF 50-55% which is improved since his CABG. Cardiomyopathy is now resolved. (3) Chronic systolic CHF (congestive heart failure): As above in "cardiomyopathy" (4) CAD (coronary artery disease), [id number] coronary artery: With recent four-vessel CABG at [facility] on 08/23 as above -Continue aspirin, simvastatin, [id number] patient was prescribed metoprolol 75 mg p.o. twice daily from [facility] but was previously on carvedilol- he was not aware he was supposed to stop taking the carvedilol -Will convert him to metoprolol tartrate here 75 mg p.o. twice daily and discontinue the carvedilol -Has upcoming follow-up appointment scheduled with his processing rep here and with the cardiothoracic surgery team at [facility] Saphenous vein graft harvest site and midline sternotomy wounds are healing well (5) Paroxysmal atrial fibrillation: Patient is in a normal sinus rhythm here -Is on Coumadin for anticoagulation-INR is elevated at 3.9 today -Hold Coumadin today and likely restart tomorrow -Continue beta-sapphire for rate control as above (6) Hyperlipidemia: -Continue statin (7) HTN (hypertension), benign: Blood pressure was initially elevated on admission and given IV Lasix -Continue beta-sapphire, lisinopril (8) S/P CABG x 4: As above (9) History of CVA (cerebrovascular accident): 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 twice daily along with potassium supplementation for 1 week after CABG With mild volume overload here possibly contributing to his cough -IV diuresis today as above and then revert to p.o. Lasix tomorrow (12) Elevated troponin: Mild elevation in troponin at 0.3 on admission which then trended downward after admission-likely secondary to recent CABG His only chest pain is that of his midline sternotomy wound that hurts with coughing -Trend troponin one more time (13) Fluid overload: Plan as above with diuresis (14) Pericardial friction rub present: Pericardial rub heard on examination and is likely secondary to recent CABG Limited echo obtained which shows a possible very small pericardial effusion versus fat pad without evidence of tamponade physiology Follow clinically (15) Anemia: Hemoglobin is 8.9 here down from baseline of fourteen 1 month ago and is likely secondary to acute blood loss anemia from recent bypass surgery No need for transfusion at this point -Follow CBC in the morning (16) DVT prophylaxis: Coumadin Disposition-admit to telemetry overnight for observation and likely discharge home tomorrow if feeling improved Results & Data Vital Signs (Past 12 Hours) Vital Signs Temp Pulse Pulse Resp BP Pulse Ox 08/31/18 06:43 36.7 C 100 H 16 123/72 93 08/31/18 03:01 36.9 C 100 H 16 119/64 92 08/30/18 23:58 99 H 08/30/18 23:29 37.1 C 100 H 16 103/60 91 (1) Fluid overload Hypervolemia type: unspecified Qualified Code(s): E87.70 - Fluid overload, unspecified
[2018-08-31] MEDS: ASPIRIN 81 MG ECTAB PO SCH (08:37)
[2018-08-31] MEDS: DOCUSATE SODIUM 100 MG CAP PO SCH (08:38)
[2018-08-31] MEDS ORDERED: CHOLECALCIFEROL 1,000 UNITS TAB PO SCH (09:00)
[2018-08-31] MEDS ORDERED: METOPROLOL TARTRATE 25 MG TAB PO SCH (09:00)
[2018-08-31] MEDS ORDERED: FUROSEMIDE 20 MG in SYRINGE 0 ML IV ONE (11:00)
--- NOTE | 2018-08-31 12:13 | Cardiology Progress Note ---
Date of Service August 31, 2018 Assessment & Plan (1) Fluid overload: 2. 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 History of resolved cardiomyopathy 4. Chronic LBBB 5. History of CAD 6. Paroxysmal atrial fibrillation 7. Hypertension 8. Dyslipidemia Patient with multivessel CAD recently underwent CABG x4 on 08/23/18. Surgical course was uncomplicated and patient was discharged home on Monday in stable condition. Admitted yesterday with cough especially with lying flat. Otherwise asymptomatic from cardiac standpoint. LV function normal on echo. Given IV 20 mg IV Lasix and -1.2 L. Improved symptoms and congestion on exam. Discussed with Dr. Fields. Given an additional dose of IV Lasix. Recommend discharging on Lasix 40 mg once daily instead of 20 mg BID. Followup in our office next week. Supervising Physician Co-Signing Physician Notes Patient seen and examined. Agree with assessment and plan as oultined by Physician Rn Ent Mirta Barrios. Briefly, Mr. Garcia is a very pleasant 83-year-old man known to me from recent cardiac catheterization where he was diagnosed with multivessel coronary artery disease. He was transferred to [facility] for cardiac surgery evaluation recent underwent four-vessel CABG with Dr. Canela. Course uncomplicated. Initially doing well at home but developed mild nonproductive cough and was recommended to proceed to ED by his PCP. On arrival noted to have been mild left pleural effusion, congestion on chest x-ray. Started on IV diuretics with appropriate response. Today net negative a liter. He reports cough feeling better. Denies significant shortness of breath. Chest wall pain well controlled. On exam looks well, mildly decreased breath sounds at the bases, regular rhythm, sternal wound well-healed without surrounding erythema. No significant lower extremity edema. From a cardiac standpoint feel patient okay for discharge today. Home on increased Lasix 40 mg daily. Follow-up with cardiology in 2 to 3 weeks and cardiac surgery at [facility] as scheduled. Subjective Patient is feeling better overall today. He is having less coughing fits. States did not sleep well due to drinking a lot of caffeine but no orthopnea or PND. Chest soreness with coughing but no other chest discomfort. Tele reviewed-- Sinus rhythm Review of Systems Review of Systems: All systems reviewed & are unremarkable except as noted in HPI & below Physical Exam 2 Physical Exam: General: No acute distress, comfortable. HEENT: Head is normal. PERRLA. EOMI. Sclerae anicteric. Ears, nose and throat unremarkable. Mucous membranes moist. Neck: No appreciable JVD. Lungs: Decreased breath sounds L base. No rales, rhonchi or wheezing. Cardiac: Regular rate and rhythm. S1-S2 normal. No appreciable murmur, gallop or rub. Midsternal incision clean, dry and intact without drainage or periwound inflammation Abdomen: Soft and nontender. Bowel sounds normal. No mass or organomegaly. No abdominal bruit. Extremities/vascular: --Well perfused. Trace lower extremity edema 1/2 way to knees bilaterally --Radial, DP and PT pulses 2+ bilaterally --Incisions from vein harvesting bilaterally clean, dry and intact, no periwound inflammation or drainage Neurologic: Nonfocal Psychiatric: Affect appropriate. Alert and oriented. Results & Data Vital Signs (Past 12 Hours) Vital Signs Temp Pulse Pulse Resp BP BP Pulse Ox 08/31/18 11:19 36.5 C 101 H 20 103/56 L 123/72 94 08/31/18 11:07 36.5 C 101 H 20 103/56 L 94 08/31/18 08:10 101 H 08/31/18 06:43 36.7 C 100 H 16 123/72 93 08/31/18 03:01 36.9 C 100 H 16 119/64 92 Laboratory Results Laboratory Results - last 24 hr 08/30/18 08/31/18 08/31/18 19:52 06:09 06:09 WBC 8.65 RBC 2.82 L Hgb 9.1 L Hct 27.0 L MCV 95.7 MCH 32.3 MCHC 33.7 RDW Std Deviation 47.5 H RDW Coeff of Ankita 13.8 Plt Count 280 MPV 10.3 Immature Gran % (Auto) 0.3 Neut % (Auto) 74.7 Lymph % (Auto) 11.0 [place] % (Auto) 11.4 Eos % (Auto) 2.4 Baso % (Auto) 0.2 Immature Gran # (Auto) 0.03 H Neut # (Auto) 6.45 Lymph # (Auto) 0.95 L [place] # (Auto) 0.99 H Eos # (Auto) 0.21 Baso # (Auto) 0.02 PT 35.1 H INR 3.8 H Sodium Potassium Chloride Carbon Dioxide Anion Gap BUN Creatinine Est Cr Clr Drug Dosing Est GFR ( Amer) Est GFR (Non-Af Amer) BUN/Creatinine Ratio Glucose Calcium Magnesium Troponin I 0.295 H* 08/31/18 06:09 WBC RBC Hgb Hct MCV MCH MCHC RDW Std Deviation RDW Coeff of Ankita Plt Count MPV Immature Gran % (Auto) Neut % (Auto) Lymph % (Auto) [place] % (Auto) Eos % (Auto) Baso % (Auto) Immature Gran # (Auto) Neut # (Auto) Lymph # (Auto) [place] # (Auto) Eos # (Auto) Baso # (Auto) PT INR Sodium 140 Potassium 3.6 Chloride 106 Carbon Dioxide 24 Anion Gap 10.0 BUN 21 H Creatinine 0.87 Est Cr Clr Drug Dosing 60.1 Est GFR ( Amer) 92.5 Est GFR (Non-Af Amer) 79.8 BUN/Creatinine Ratio 24.4 H Glucose 98 Calcium 8.3 L Magnesium 2.1 Troponin I 0.255 H* Diagnostic Findings Echo 08/30/18: Normal LV size and low normal function. EF 50-55%. Akinesis of base to mid inferior wall. Anteroseptum with parodoxical motion consistent with LBBB and post surgery state. Moderate concentric LVH. Pleural effusion. Very small anterior fat pad versus very small pericardial effusion without tamponade. (1) Fluid overload Hypervolemia type: unspecified Qualified Code(s): E87.70 - Fluid overload, unspecified
--- NOTE | 2018-08-31 17:12 | Discharge Summary ---
Date of Service August 31, 2018 Admission HPI Per Admitting Provider This patient is an 83-year-old male with a history of severe CAD status post 4vCABG on 08/23/2018 at [facility], PAF, chronic systolic CHF, HL, HTN, history of CVA, prostate cancer, and kidney stones, who presents to the ER with 2 days of cough productive of clear to white sputum and a sore throat. He has had some mild shortness of breath as well. He denies any pleuritic type chest pain but does have pain at the site of his sternotomy with coughing. He denies fevers/chills/sweats, denies hemoptysis, denies lightheadedness or headache, no dizziness, denies abdominal pain, denies nausea/vomiting/diarrhea. He denies any sick contacts. He contacted his cardiothoracic surgeon at [place] but did not hear back immediately and therefore contacted his primary care physician who directed him to come to the ER to get checked out. In the ER, his chest x-ray showed a small left pleural effusion and some mild pulmonary vascular congestion. He had a mildly elevated troponin at 0.36 and a elevated proBNP at 2000 with no baseline to compare to. The patient reports he did not take any of his morning medications today, and furthermore, he reports he has been taking both his carvedilol and the metoprolol prescribed by [place]. Principal Diagnosis HFpef, recent CAbg(08/23/18) Discharge Exam Constitutional well developed and average body habitus Eyes no conjunctival abnormality and no scleral abnormality Neck normal visual inspection and trachea midline Respiratory normal respiratory effort; no respiratory distress Auscultation: lungs clear to auscultation bilaterally Cardiovascular RRR, no murmur, no edema Gastrointestinal (Abdomen) normal bowel sounds, soft, nontender, no hepatosplenomegaly Musculoskeletal no cyanosis or clubbing, extremities motor strength 08/19 Discharge Data Allergies Allergy/AdvReac Type Severity Reaction Status Date / Time No Known Allergies Allergy Unverified 08/30/18 11:02 Consultations 08/30/18 12:01 ED Decision to Admit Stat 08/30/18 15:43 Consult Cardiology Routine Hospital Course (1) Cough: Cough secondary to mild volume overload improved with lasix He is not hypoxic or in any respiratory distress in the am of 08/31 Given CABG one week ago, revert to p.o. Lasix 40 mg once a day -Tessalon Perles 100 mg p.o. 3 times daily PRN cough (2) Cardiomyopathy: Previous cardiomyopathy many years ago with EF of 20-25% which then improved to 43% on recent nuclear medicine stress test prior to CABG. His echocardiogram here is now with LVEF 50-55% which is improved since his CABG. Cardiomyopathy is now resolved. (3) Chronic systolic CHF (congestive heart failure): As above in "cardiomyopathy" (4) CAD (coronary artery disease), [place] coronary artery: With recent four-vessel CABG at [facility] on 08/23 as above -Continue aspirin, simvastatin, [id number] patient was prescribed metoprolol 75 mg p.o. twice daily from [place] but was previously on carvedilol- he was not aware he was supposed to stop taking the carvedilol -Will convert him to metoprolol tartrate here 75 mg p.o. twice daily and discontinue the carvedilol -Has upcoming follow-up appointment scheduled with his digital photographic printer here and with the cardiothoracic surgery team at [place] Saphenous vein graft harvest site and midline sternotomy wounds look good (5) Paroxysmal atrial fibrillation: Patient is in a normal sinus rhythm here -Is on Coumadin for anticoagulation-INR is elevated at 3.9 today -Hold Coumadin and restart on 09/02 at lower dose, pt states Dr Hannah Kaufman will follow -Continue beta-sapphire for rate control as above (6) Hyperlipidemia: -Continue statin (7) HTN (hypertension), benign: Blood pressure was initially elevated on admission and given IV Lasix -Continue beta-sapphire, lisinopril (8) S/P CABG x 4: As above (9) History of CVA (cerebrovascular accident): 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 expressive aphasia in 2010-subsequent resolution of all neurologic symptoms -Is on Coumadin, aspirin (10) Chronic anticoagulation: On Coumadin-dose was lowered INR is still elevated will recheck on sunday 09/03 (11) Pleural effusion: Secondary to recent CABG (12) Elevated troponin: Mild elevation in troponin at 0.3 on admission which then trended downward after admission-likely secondary to recent CABG His only chest pain is that of his midline sternotomy wound that hurts with coughing (13) Fluid overload: Plan as above with diuresis (14) Pericardial friction rub present: Pericardial rub initially heard on intake is now gone Limited echo obtained which shows a possible very small pericardial effusion versus fat pad without evidence of tamponade physiology (15) Anemia: Hemoglobin is 8.9 here down from baseline of fourteen 1 month ago and is likely secondary to acute blood loss anemia from recent bypass surgery No need for transfusion at this point (16) DVT prophylaxis: Coumadin Disposition-admit to telemetry overnight for observation and likely discharge home tomorrow if feeling improved Total Time Total Time Spent Total Time Spent (In Minutes): greater than 30 minutes were required to prepare discharge Discharge Plan Discharge Items Patient Disposition: Home - Home Health Services Reason For Visit: COUGH, ELEVATED TROPONIN Discharge Diagnosis: mild fluid on lungs with cough Discharge Goals: Decrease discomfort and Diagnostic testing Activity: Resume your previous activity Non-emergency contact: Primary Care Provider and Child Watch Attendant Call non-emergency contact if: you have any medication questions Follow-up/Referrals: Kamar Berry MD [Primary Care Provider] - Diet: Low Sodium (2gm) Addtl Provider Instructions: please weigh yourself daily and record If you gain more that 3 pounds overnight or a total of 5 pounds in one week, call the digital photographic printer or Dr Hannah Kaufman no coumadin for monday and monday, start monday at 1 mg Prescriptions: New benzonatate [Tessalon Perles] 100 mg Capsule 100 mg PO TID PRN (Reason: cough) Qty: 20 RF: 0 furosemide 20 mg Tablet 40 mg PO DAILY Qty: 60 RF: 0 Continued aspirin 81 mg Tablet,Delayed Release (Dr/Ec) 81 mg PO QAM RF: 0 acetaminophen [Tylenol Extra Strength] 500 mg Tablet 500 mg PO Q6H PRN (Reason: Pain) RF: 0 simvastatin 40 mg tablet 40 mg PO HS RF: 0 docusate sodium [Colace] 100 mg Capsule 100 mg PO QAM RF: 0 potassium chloride 10 mEq tablet,ER particles/crystals 10 meq PO TID RF: 0 metoprolol tartrate 25 mg tablet 75 mg PO BID RF: 0 multivitamin Capsule 1 cap PO QAM RF: 0 cholecalciferol (vitamin D3) [Vitamin D3] 2,000 unit Capsule 2,000 unit PO QAM RF: 0 Changed warfarin 1 mg tablet 1 mg PO DAILY Qty: 0 RF: 0 Discontinued carvedilol 12.5 mg Tablet 12.5 mg PO BIDM RF: 0 furosemide 20 mg tablet 20 mg PO UD RF: 0 warfarin 1 mg tablet 2 mg PO 5XWK RF: 0 Stand-Alone Forms: [facility] Discharge Orders: Discharge Order (Routine); Ordered 08/31/18 Ordered By: Nish Fields Admission Data Admit Date/Time: 08/30/18 14:32 Attending Provider: Nish Fields Admit Provider: Francine Carson Primary Care Provider: Kamar Berry Other Providers: Francine Carson ; Lionel Portillo Service: Telemetry Other Interventions: Discharge Summary Assessment (RN) Last Done: 08/31/18 12:52 DC Date/Time DO NOT enter until pt leaves facility: 08/31/18 13:05
== END 2018-08-31 13:05 | disposition home health service (06) ==
LOC: 2E 09:24 → ED 09:24 → SUATTDRO 14:32 → 2E 15:19

== ENCOUNTER 2019-11-02 09:16 | Observation (INO) ==
--- NOTE | 2019-11-02 10:49 | Emergency Department Note ---
Impression & Plan Low back pain, Fall ED Provider Note INFORMANT: [Patient] ED PROVIDER(S): Gerhard Jacobson MD CHIEF COMPLAINT: Back pain PLAN: Disposition: Admitted Condition: [Good] Outpatient prescription management: [none] MEDICAL DECISION MAKING: Patient presented after accidental fall. He has a history of significant spinal stenosis. He underwent CT imaging and blood work. CBC and chemistry panel were unremarkable. Urinalysis was also unremarkable. CT imaging was concerning for T12 compression fracture. He also has spinal stenosis noted. The patient was given an oral [place] for pain. Because of his discomfort and his living situation I discussed treatment options as an inpatient. The patient felt that was most reasonable. Unfortunately he needs PT and OT evaluation before consideration for inpatient rehab. Due to this fact consultation was placed with internal medicine. The patient was evaluated in the ER admitted for further management. Triage Nursing notes reviewed and agree them. Vital Signs: reviewed and remarkable for hypertension Differential diagnosis: Musculoskeletal, disc herniation, fracture, metastatic disease, cord compression, discitis, sciatica, cauda equina, infection, aortic disease, renal colic, gastrointestinal, as well as other pathologies. Diagnostics interpreted by me: Imaging studies: CT scan of the abdomen pelvis reveals a endplate T12 compression fracture as well as spinal stenosis. I refer you to the EMR for further details. Consultation(s): Dr. Mccormick, [facility] internal medicine HPI: The patient is a 84 year old male who presents to the Emergency Room with complaints of low back pain. This started last night and is worsening. The patient states he fell over while trying to get dressed accidentally. He has history of spinal stenosis. The patient also notes the following associated symptoms, none. The patient has tried Tylenol for relieving factors. Current pain is rated as 3/10. Declines additional analgesia at this time. No head injury. Pt denies LOC, headache, fevers, chills, diaphoresis, visual changes, neck pain, chest pain, breathing difficulties, nausea, vomiting, abdominal pain, upper back pain, melena, hematochezia, urinary symptoms, numbness, weakness, l ymphadenopathy, rash, or other complaints. ROS: See above HPI for pertinent positives & negatives. A total of [10] systems reviewed and were otherwise negative. PAST MEDICAL HISTORY:[See Below] spinal stenosis PAST SURGICAL HISTORY:[See Below] FAMILY HISTORY:[See Below] SOCIAL HISTORY:[See Below] lives alone HOME MEDICATIONS:[See Below] ALLERGIES:[See Below] VITALS:[See Below] PHYSICAL EXAMINATION: GENERAL: Awake, alert, uncomfortable-appearing, in no distress HENT: Normocephalic, atraumatic. Oropharynx unremarkable. EYES: Normal conjunctiva. Sclera non-icteric. NECK: Inspection normal. Non-tender. Supple. No nuchal rigidity. FROM. No masses. RESPIRATORY: Clear to auscultation. No wheezes. No rales. Normal respiratory effort. CARDIAC: Normal rate. Normal rhythm. No murmurs. No rubs. Extremities warm and well perfused. Pulses equal. No JVD. GI: Soft, non-distended. No tenderness to palpation. No rebound or guarding. No masses. RECTAL: Deferred. MUSCULOSKELETAL: Atraumatic. Chest examination reveals no tenderness. The back is symmetrical on inspection without obvious abnormality. No step-offs. There is low lumbar midline tenderness. There is no CVA tenderness to palpation. No joint edema. LOWER EXTREMITIES: Calves are equal size bilaterally and non-tender. No edema. No discoloration. NEURO: Normal sensorium. No sensory or motor deficits noted. SKIN: No rash or jaundice noted. ED COURSE: [Critical Care:] [None] Gerhard Jacobson MD Past Med/Surg History Medical History (Updated 11/02/19 @ 10:47 by Gerhard Jacobson MD) CAD (coronary artery disease), [place] coronary artery Cardiomyopathy Chronic anticoagulation Chronic systolic CHF (congestive heart failure) History of CVA (cerebrovascular accident) History of nephrolithiasis History of prostate cancer HTN (hypertension), benign Hyperlipidemia Multi-vessel coronary artery stenosis No significant active problems No significant family history Paroxysmal atrial fibrillation Surgical History (Updated 07/09/19 @ 16:03 by Fiona Mejia) History of cardiac cath History of cataract surgery History of lithotripsy History of prostatectomy History of tonsillectomy S/P CABG x 4 Family History (Updated 07/09/19 @ 16:09 by Fiona Mejia) Sister Family history of deafness or hearing loss Breast cancer Father Family history of rheumatic heart disease Other Family history non-contributory Social History (Updated 07/09/19 @ 16:09 by Fiona Mejia) Preferred Language: Chilean Communication Ability: Effective Fish Stringer Assembler Required: No Beliefs That Will Affect Care: None marital status: Single Current Living Situation: Alone current occupational status: retired Feels Safe at Home: Yes Smoking Status: Former smoker Second Hand Exposure: No ; Hx Alcohol Use: No Hx Substance Use: No Allergies Allergies Allergy/AdvReac Type Severity Reaction Status Date / Time No Known Allergies Allergy Verified 11/02/19 10:10 Home Meds Home Medications Medication Instructions Recorded Confirmed aspirin 81 mg PO QAM 08/30/18 11/02/19 simvastatin 40 mg PO HS 08/30/18 11/02/19 carvedilol 12.5 mg tablet 12.5 mg PO BID #180 tab 11/06/18 11/02/19 cholecalciferol (vitamin D3) 50 1,000 unit PO QAM tab 11/06/18 11/02/19 mcg (2,000 unit) tablet multivitamin [Multiple Vitamins] 1 tab PO DAILY 11/02/19 11/02/19 warfarin 1 mg PO MOTUTHFRSA@16 11/02/19 11/02/19 warfarin 2 mg PO SUWE@16 11/02/19 11/02/19 Results & Data (ED) Vital Signs Vital Signs - 24 hr 11/02/19 09:27 11/02/19 10:59 11/02/19 11:41 Temperature 36.5 C Temperature Source Oral Pulse Rate 69 Pulse Rate [Left Apical] 64 Pulse Rate [Right Finger] 66 Pulse Rate from SpO2 Sensor Respiratory Rate 18 20 Respiratory Effort / Characteristics Non-Labored Spontaneous Non-Labored Spontaneous Respiratory Depth Normal Normal Respiratory Pattern Regular Regular Blood Pressure 168/73 H Blood Pressure [Right Arm] 133/72 150/82 H Blood Pressure Mean 104 Blood Pressure Mean [Right Arm] 92 104 Blood Pressure Position Lying Blood Pressure Position [Right Arm] Sitting Pulse Oximetry 98 98 Oxygen Delivery Method Room Air Room Air Sepsis Recent Fever Within 48 Hours No Sepsis New/Unexplained Change in Mental Status N/A Sepsis Action Taken by Nursing No Action Required 11/02/19 12:05 11/02/19 12:13 11/02/19 12:30 Temperature Temperature Source Pulse Rate 60 59 L 58 L Pulse Rate [Left Apical] Pulse Rate [Right Finger] Pulse Rate from SpO2 Sensor 60 59 L 59 L Respiratory Rate 17 16 17 Respiratory Effort / Characteristics Respiratory Depth Respiratory Pattern Blood Pressure 148/72 H 147/69 H Blood Pressure [Right Arm] Blood Pressure Mean 98 86 Blood Pressure Mean [Right Arm] Blood Pressure Position Blood Pressure Position [Right Arm] Pulse Oximetry 93 93 95 Oxygen Delivery Method Sepsis Recent Fever Within 48 Hours Sepsis New/Unexplained Change in Mental Status Sepsis Action Taken by Nursing 11/02/19 13:00 11/02/19 13:30 11/02/19 14:00 Temperature Temperature Source Pulse Rate 58 L 63 62 Pulse Rate [Left Apical] Pulse Rate [Right Finger] Pulse Rate from SpO2 Sensor 58 L 63 61 Respiratory Rate 17 16 15 Respiratory Effort / Characteristics Respiratory Depth Respiratory Pattern Blood Pressure 150/67 H 139/69 145/73 H Blood Pressure [Right Arm] Blood Pressure Mean 82 94 103 Blood Pressure Mean [Right Arm] Blood Pressure Position Blood Pressure Position [Right Arm] Pulse Oximetry 94 96 95 Oxygen Delivery Method Sepsis Recent Fever Within 48 Hours Sepsis New/Unexplained Change in Mental Status Sepsis Action Taken by Nursing Laboratory Data Result diagrams: 11/02/19 11:01 11/02/19 11:01 Lab Results 11/02/19 11/02/19 11/02/19 Range/Units 11:01 11:01 11:30 WBC 8.47 (4.8-10.8) K/uL RBC 3.91 L (4.7-6.1) M/uL Hgb 12.9 L (14.0-18.0) g/dL Hct 37.5 L (42-52) % MCV 95.9 (80-100) fL MCH 33.0 (25-34) pg MCHC 34.4 (32-36) g/dL RDW Std Deviation 51.3 H (36.4-46.3) fL RDW Coeff of Ankita 14.6 H (11.5-14.5) % Plt Count 144 (130-400) K/uL MPV 11.6 H (7.4-10.4) fL Immature Gran % (Auto) 0.4 % Neut % (Auto) 82.2 % Lymph % (Auto) 9.4 % [place] % (Auto) 7.8 % Eos % (Auto) 0.1 % Baso % (Auto) 0.1 % Neut # (Auto) 6.96 H (1.4-6.5) K/uL Lymph # (Auto) 0.80 L (1.2-3.4) K/uL [place] # (Auto) 0.66 H (0.11-0.59) K/uL Eos # (Auto) 0.01 (0-0.5) K/uL Baso # (Auto) 0.01 (0-0.2) K/uL Immature Gran # (Auto) 0.03 H (0.00-0.02) K/uL Sodium 143 (136-145) mmol/L Potassium 4.5 (3.5-5.1) mmol/L Chloride 112 H (98-107) mmol/L Carbon Dioxide 27 (21-32) mmol/L Anion Gap 4.0 (3-11) BUN 26 H (7-18) mg/dl Creatinine 0.95 (0.6-1.4) mg/dl Est Cr Clr Drug Dosing 54.1 ml/min Est GFR ( Amer) 84.9 Est GFR (Non-Af Amer) 73.2 BUN/Creatinine Ratio 27.3 H (10-20) Glucose 121 H (70-99) mg/dl Calcium 8.5 (8.5-10.1) mg/dl Total Bilirubin 0.6 (0.2-1) mg/dl AST 18 (15-37) U/L ALT 22 (12-78) U/L Alkaline Phosphatase 69 (45-117) U/L Total Protein 6.7 (6.4-8.2) gm/dl Albumin 3.3 L (3.4-5.0) gm/dl Globulin 3.4 (2.5-4.0) gm/dl Albumin/Globulin Ratio 1.0 (0.9-2) Urine Color Dark Yellow Urine Appearance Clear (Clear) Urine pH 5.0 (4.5-7.5) Ur Specific [place] 1.023 (1.000-1.030) Urine Protein Negative (Negative) Urine Glucose (UA) Negative (Negative) Urine Ketones Negative (Negative) Urine Blood Negative (Negative) Urine Nitrite Negative (Negative) Urine Bilirubin Negative (Negative) Urine Urobilinogen Negative (Negative) Ur Leukocyte Esterase Negative (Negative) Discharge Plan Visit Data Chief Complaint: Back Injury/Pain ED Provider: Gerhard Jacobson Discharge Problem: Low back pain, Fall Forms Stand Alone Forms: My [facility] [employer] Prescriptions Prescriptions: No Action carvedilol 12.5 mg tablet 12.5 mg PO BID Qty: 180 RF: 0 cholecalciferol (vitamin D3) 2,000 unit tablet 1,000 unit PO QAM RF: 0 aspirin 81 mg Tablet,Delayed Release (Dr/Ec) 81 mg PO QAM RF: 0 simvastatin 40 mg tablet 40 mg PO HS RF: 0 multivitamin [Multiple Vitamins] Tablet 1 tab PO DAILY RF: 0 warfarin 1 mg tablet 2 mg PO SUWE@16 RF: 0 warfarin 1 mg tablet 1 mg PO MOTUTHFRSA@16 RF: 0
[2019-11-02 11:24] LABS: Basophils # (auto) 0.01 K/uL (0-0.2); Basophils % (auto) 0.1 %; Eosinophils # (auto) 0.01 K/uL (0-0.5); Eosinophils % (auto) 0.1 %; Hematocrit (blood only) 37.5 % (42-52); Hemoglobin 12.9 g/dL (14.0-18.0); Immature Granulocytes # (auto) 0.03 K/uL (0.00-0.02); Immature Granulocytes % (auto) 0.4 %; Lymphocytes % (auto) 9.4 %; Mean Corpuscular Hgb Conc 34.4 g/dL (32-36); Mean Corpuscular Volume 95.9 fL (80-100); Mean Platelet Volume 11.6 fL (7.4-10.4); Monocytes # (auto) 0.66 K/uL (0.11-0.59); Monocytes % (auto) 7.8 %; Neutrophils # (auto) 6.96 K/uL (1.4-6.5); Neutrophils % (auto) 82.2 %; Platelet Count 144 K/uL (130-400); RDW Coefficient of Variation 14.6 % (11.5-14.5); RDW Standard Deviation 51.3 fL (36.4-46.3); Red Blood Count 3.91 M/uL (4.7-6.1); White Blood Count 8.47 K/uL (4.8-10.8)
[2019-11-02 11:40] LABS: Albumin Level 3.3 gm/dl (3.4-5.0); BUN Creatinine Ratio 27.3 (10-20); Calcium 8.5 mg/dl (8.5-10.1); Creatinine Clr Calc Pharmacy 54.1 ml/min; Est GFR (African American) 84.9; Est GFR (Non-African American) 73.2; Potassium 4.5 mmol/L (3.5-5.1)
[2019-11-02 11:43] LABS: Bilirubin,Total 0.6 mg/dl (0.2-1); Globulin 3.4 gm/dl (2.5-4.0); Total Protein 6.7 gm/dl (6.4-8.2)
[2019-11-02 11:51] LABS: Appearance Urine Clear (Clear); Bilirubin Urine Negative (Negative); Blood Urine Negative (Negative); Color Urine Dark Yellow; Glucose Urine UA Negative (Negative); Ketones Urine Negative (Negative); Leukocyte Esterase Urine Negative (Negative); Nitrite Urine Negative (Negative); Protein Urine Negative (Negative); Specific Gravity Urine 1.023 (1.000-1.030); Urobilinogen Urine Negative (Negative)
--- NOTE | 2019-11-02 12:34 | CT Scan Report ---
CT lumbar spine wo con CLINICAL HISTORY: Back Pain COMPARISON STUDY: Lumbar spine radiographs June 28, 2019. Lumbar spine MRI September 06, 2019. TECHNIQUE: Axial images of the lumbar spine were obtained without IV contrast. Sagittal and coronal r econstructions were viewed. Automated exposure control was utilized for the study. A dose lowering t echnique was utilized adhering to the principles of ALARA. FINDINGS: For purposes of numbering on this examination, the L5-S1 disc space is assigned to axial im age 306 of 378. Utilizing this numbering scheme, L5 and represents a transitional vertebra which is p artially sacralized. There is slight rightward curvature of the lumbar spine. There is a probable mil d compression fracture involving the inferior endplate of T12 which is partially imaged on this exam. This is new since MRI of September 06, 2019. A Schmorl's node along the superior endplate of L3 is noted. No acute lumbar spine fracture. There is no suspicious osseous lesion. The sacroiliac joints are inta ct. The central canal and neural foramen are suboptimally assessed given CT technique. There is sever e central canal stenosis at L3-L4 which is better depicted on prior MRI. IMPRESSION: 1. Probable mild compression fracture involving the inferior endplate of T12 which is partially image d on this examination. 2. No acute lumbar spine fracture. 3. Transitional vertebra at the lumbosacral junction which is designated as L5 for purposes of number ing on this exam. Please see above numbering scheme. 4. Severe central canal stenosis at L3-L4 due to disc bulge, ligamentous hypertrophy and facet arthro sis. ACT 112: Negative or not required by law. Electronically signed by: Dave Umana M.D. 11/02/2019 12:33 PM
[2019-11-02] MEDS ORDERED: HYDROCODONE/ACETAMOPHEN 5/325MG TAB PO STA (13:53)
--- NOTE | 2019-11-02 14:47 | History & Physical Report ---
Date of Service November 02, 2019 Assessment & Plan (1) Low back pain: (2) Spinal stenosis: (3) Compression fracture: -Admit to med surg -CT spine reviewed: 1. Probable mild compression fracture involving the inferior endplate of T12 which is partially imaged on this examination. 2. No acute lumbar spine fracture. 3. Transitional vertebra at the lumbosacral junction which is designated as L5 for purposes of numbering on this exam. Please see above numbering scheme. 4. Severe central canal stenosis at L3-L4 due to disc bulge, ligamentous hypertrophy and facet arthrosis - Pain control with oxycodone 5 mg Q4H prn, around the clock tylenol, IV MS 2 - 4mg prn - Bowel regimen ordered - Pt has previously been seen for back pain by [facility] pain management on 09/24/19 and were going to proceed with spinal injection - will consult - PT/OT consults - pt was unable to be placed at [facility] over the weekend, will anticipate this early next week. (4) CAD, multiple vessel: - August 2018 underwent 4-vessel CABG at [facility] - Continue aspirin, simvastatin, carvedilol -Follows with cariology, Dr. Whittington, as outpatient (5) Paroxysmal atrial fibrillation: - Continue coumadin, checking INR now follow with a.m. labs (6) Dyslipidemia: -Continue simvastatin 40 mg at bedtime (7) Hypertension: -Continue carvedilol 12.5 mg twice daily (8) Anemia: -History of such, hemoglobin 12.9 on admission, appears to be much improved compared to previously (9) DVT prophylaxis: - teds, Coumadin CODE: DNR/DNI Dispo: From home, likely to remain in the hospital x 1-2 days, CM to assist with placement to encompass History of Present Illness Primary Care Provider: Kamar Berry MD This is an 84-year-old male with PMHx of CAD s/p four-vessel coronary artery bypass at [facility] on 08/23/2018, paroxysmal A. fib on Coumadin, chronic systolic CHF, HTN, HLD, history of CVA, prostate cancer, kidney stones who presents with worsening lower back pain. He has been evaluated by [facility] pain management as an outpatient at the beginning of September where it was determined that he would be a candidate for spinal injection. Since then his appointment had to be canceled because their machine was down, and has not been rescheduled since. He reports last night being at home getting undressed to go to bed, when he fell to the ground and landed on his buttocks. He denies LOC, dizziness prior to the event, and did not sustain trauma to any other area. he has previously worked to strengthen his balance with techniques learned previously PT/OT and has been able to put his socks on standing up. Reports his pain is located in the left lower back specifically, at rest is currently a 4/10, but earlier today was an 8/10 with minimal movement. He had significant difficulty walking last evening after his fall. He denies any other acute complaints. Pt took his routinely scheduled medications, lives at home alone. Allergies Allergy/AdvReac Type Severity Reaction Status Date / Time No Known Allergies Allergy Verified 11/02/19 10:10 Home Medications Home Medications Medication Instructions Recorded Confirmed Type aspirin 81 mg PO QAM 08/30/18 11/02/19 History simvastatin 40 mg PO HS 08/30/18 11/02/19 History carvedilol 12.5 mg tablet 12.5 mg PO BID #180 tab 11/06/18 11/02/19 History cholecalciferol (vitamin D3) 50 1,000 unit PO QAM tab 11/06/18 11/02/19 History mcg (2,000 unit) tablet multivitamin [Multiple Vitamins] 1 tab PO DAILY 11/02/19 11/02/19 History warfarin 1 mg PO MOTUTHFRSA@16 11/02/19 11/02/19 History warfarin 2 mg PO SUWE@16 11/02/19 11/02/19 History Past Med/Surg History Medical History (Updated 11/02/19 @ 14:44 by Lupe Segovia PA-C) CAD (coronary artery disease), [place] coronary artery Cardiomyopathy Chronic anticoagulation Chronic systolic CHF (congestive heart failure) History of CVA (cerebrovascular accident) History of nephrolithiasis History of prostate cancer HTN (hypertension), benign Hyperlipidemia Multi-vessel coronary artery stenosis No significant active problems No significant family history Paroxysmal atrial fibrillation Surgical History (Updated 07/09/19 @ 16:03 by Fiona Mejia) History of cardiac cath History of cataract surgery History of lithotripsy History of prostatectomy History of tonsillectomy S/P CABG x 4 Family History (Updated 07/09/19 @ 16:09 by Fiona Mejia) Sister Family history of deafness or hearing loss Breast cancer Father Family history of rheumatic heart disease Other Family history non-contributory Social History (Updated 07/09/19 @ 16:09 by Fiona Mejia) Preferred Language: Thai Communication Ability: Effective 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 Beliefs That Will Affect Care: None marital status: Single Current Living Situation: Alone current occupational status: retired Feels Safe at Home: Yes Smoking Status: Former smoker Second Hand Exposure: No ; Hx Alcohol Use: No Hx Substance Use: No Review of Systems Review of Systems: Constitutional: No fever, sweats or chills Eyes: No diplopia, no worsening or blurred vision ENT: normal hearing, no trouble swallowing Respiratory: No cough, sputum, dyspnea at rest or on exertion Cardiovascular: No chest pain, tightness or palpitations Abdomen: No pain, nausea, vomiting, diarrhea or constipation Musculoskeletal: As per HPI, left lower back pain specifically, no radiation of pain into the legs, s/p fall last evening. Neurologic: No weakness, numbness/tingling, or balance problems Psychiatric: No anxiety or depression Skin: No rash or itch Physical Exam Physical Exam: General: awake, alert, no apparent distress Head: Normocephalic, atraumatic EENT: PERRL, EOMI, + hearing aids in, no pharyngeal exudate, mucous membranes moist Chest: Clear to auscultation, on room air, no adventitious breath sounds Cardiac: Regular rate and rhythm, no murmur, no JVD, normal peripheral pulses, good capillary refill Abdominal: NABS x 4 quadrants, soft, nondistended, nontender to palpation, no rebound, guarding or tenderness Extremities: Normal inspection, no peripheral edema or erythema, calfs nontender to palpation Back: No areas of ecchymosis, tenderness over the left lower back. Psych: Normal mood and affect Neuro: AAO x 3, strength intact bilaterally and rated 5/5, can perform straight leg raise without pain, no motor deficits, speech is clear, no peripheral sensory deficits Skin: no rash or erythema Results & Data Results & Data ([facility]) Vital Signs (Past 12 Hours) Vital Signs Temp Pulse Pulse Pulse Resp BP BP 11/02/19 14:00 62 15 145/73 H 11/02/19 13:30 63 16 139/69 11/02/19 13:00 58 L 17 150/67 H 11/02/19 12:30 58 L 17 147/69 H 11/02/19 12:13 59 L 16 11/02/19 12:05 60 17 148/72 H 11/02/19 11:41 64 150/82 H 11/02/19 10:59 66 20 133/72 11/02/19 09:27 36.5 C 69 18 168/73 H Pulse Ox 11/02/19 14:00 95 11/02/19 13:30 96 11/02/19 13:00 94 11/02/19 12:30 95 11/02/19 12:13 93 11/02/19 12:05 93 11/02/19 11:41 11/02/19 10:59 98 11/02/19 09:[address] lumbar spine wo con CLINICAL HISTORY: Back Pain COMPARISON STUDY: Lumbar spine radiographs June 28, 2019. Lumbar spine MRI September 06, 2019. TECHNIQUE: Axial images of the lumbar spine were obtained without IV contrast. Sagittal and coronal reconstructions were viewed. Automated exposure control was utilized for the study. A dose lowering technique was utilized adhering to the principles of ALARA. FINDINGS: For purposes of numbering on this examination, the L5-S1 disc space is assigned to axial image 306 of 378. Utilizing this numbering scheme, L5 and represents a transitional vertebra which is partially sacralized. There is slight rightward curvature of the lumbar spine. There is a probable mild compression fracture involving the inferior endplate of T12 which is partially imaged on this exam. This is new since MRI of September 06, 2019. A Schmorl's node along the superior endplate of L3 is noted. No acute lumbar spine fracture. There is no suspicious osseous lesion. The sacroiliac joints are intact. The central canal and neural foramen are suboptimally assessed given CT technique. There is severe central canal stenosis at L3-L4 which is better depicted on prior MRI. IMPRESSION: 1. Probable mild compression fracture involving the inferior endplate of T12 which is partially imaged on this examination. 2. No acute lumbar spine fracture. 3. Transitional vertebra at the lumbosacral junction which is designated as L5 for purposes of numbering on this exam. Please see above numbering scheme. 4. Severe central canal stenosis at L3-L4 due to disc bulge, ligamentous hypertrophy and facet arthrosis. Supervising Physician Co-Signing Physician Notes I supervised Homa Segovia PA-C on this admission. I interviewed and examined the patient independently of her. The plan is as written in the note except for any following changes/exceptions: None Back pain after a mechanical fall. Presently in less pain, but not able to complete his ADLs. Had been hoping to go to [facility] straight from ED, but insurance issues made that impossible. Will work with PT/OT. Consult [facility] to see if pain management can see him in the hospital. Other medical issues stable at this time. PG Care Time/CCT Total # of Minutes Spent Total Time Spent with Patient: Total time spent is greater than 50% in coordination of care (as documented) at patient's floor/unit and/or counseling patient: Coding Level of Care Code 21527 Initial Inpt Care Lvl 3 Diagnoses Low back pain M54.5 Spinal stenosis M48.00 Compression fracture CAD, multiple vessel I25.10 Paroxysmal atrial fibrillation I48.0 Dyslipidemia E78.5 Hypertension I10 Anemia D64.9 DVT prophylaxis Z29.9
[2019-11-02 16:43] LABS: INR 1.3 (0.9-1.1); Prothrombin Time 13.1 Seconds (9.0-12.0)
[2019-11-02] MEDS ORDERED: MoRPHine SULFATE 2 MG/ML CARP IV PRN (16:55)
[2019-11-02] MEDS ORDERED: MoRPHine SULFATE 4 MG/ML 1 ML CARP\\VIAL IV PRN (16:55)
[2019-11-02] MEDS ORDERED: OXYCODONE HCL IR 5 MG TAB (IMMEDIATE RELEASE) PO PRN (16:55)
[2019-11-02] MEDS ORDERED: ONDANSETRON INJ 2 MG/ML 2 ML VIAL IV PRN (16:55)
[2019-11-02] MEDS: ACETAMINOPHEN 500 MG TAB PO SCH (17:55)
[2019-11-02] MEDS: SIMVASTATIN 40 MG TAB PO SCH (20:37)
[2019-11-02] MEDS: carvediloL 12.5 MG TAB PO SCH (20:37)
[2019-11-03] MEDS: ACETAMINOPHEN 500 MG TAB PO SCH ×3 (02:33→18:35)
[2019-11-03 06:37] LABS: INR 1.3 (0.9-1.1); Prothrombin Time 13.4 Seconds (9.0-12.0)
[2019-11-03] MEDS ORDERED: HYDROCODONE/ACETAMOPHEN 5/325MG TAB PO PRN (08:05)
[2019-11-03] MEDS: SENNA 8.6 MG TAB PO SCH (08:12)
[2019-11-03] MEDS: POLYETHYLENE (MIRALAX) 17 GM PACK PO SCH (08:13)
[2019-11-03] MEDS: carvediloL 12.5 MG TAB PO SCH ×2 (08:13→21:28)
[2019-11-03] MEDS: MULTIVITAMIN TAB PO SCH (08:14)
[2019-11-03] MEDS: ASPIRIN 81 MG ECTAB PO SCH (08:14)
[2019-11-03] MEDS: CHOLECALCIFEROL 1,000 UNITS 25 MCG TAB PO SCH (08:14)
[2019-11-03] MEDS ORDERED: bisacodyL 5 MG TABEC PO SCH (09:00)
--- NOTE | 2019-11-03 09:20 | Consultation ---
Date of Consultation November 03, 2019 Assessment & Plan (1) Compression fracture: In regards to his probable acute T12 compression fracture from a mechanical fall 36 hours ago we will treat this conservatively. I have ordered a TLSO brace to be worn with activity. No surgical indications. Continue with pain control and physical therapy. No lifting over 5 pounds. Ambulate ad simi. In regards to his severe L3-4 spinal stenosis, he is quite interested in pursuing injections. I have given him 2 options. One is to consult [facility] pain management to see if they can give him an injection while he is here. He understands that his Coumadin would have to be held. Vitamin K might have to be given. The second option is to call [facility]/Dr. Remy's office tomorrow and schedule his injection at a later date. Supervising Physician Co-Signing Physician Notes Dr. Jakob Saunders History of Present Illness This is an 84-year-old gentleman with known L3-4 severe spinal stenosis seeing [facility] management/Dr. Remy. He sustained a mechanical fall about 36 hours and presented to the ER yesterday because of his back pain. Patient's complaint today is predominantly his thoracolumbar pain. Prior to his fall he had bilateral lower extremity pain left leg was equal to the right leg. This is reproduced with short periods of standing and walking. Sitting was palliative. He would take Tylenol at home for pain control. He was ambulating independently prior to his fall. Patient was supposed to have steroid injection by Dr. Remy the end of September but due to his high INR and then x-ray machine being down at [facility] this was never completed. He reports he has no follow-up appointment. Attending Physician: Francine Carson MD Allergies Allergy/AdvReac Type Severity Reaction Status Date / Time No Known Allergies Allergy Verified 11/02/19 10:10 Home Medications Home Medications Medication Instructions Recorded Confirmed Type aspirin 81 mg PO QAM 08/30/18 11/02/19 History simvastatin 40 mg PO HS 08/30/18 11/02/19 History carvedilol 12.5 mg tablet 12.5 mg PO BID #180 tab 11/06/18 11/02/19 History cholecalciferol (vitamin D3) 50 1,000 unit PO QAM tab 11/06/18 11/02/19 History mcg (2,000 unit) tablet multivitamin [Multiple Vitamins] 1 tab PO DAILY 11/02/19 11/02/19 History warfarin 1 mg PO MOTUTHFRSA@16 11/02/19 11/02/19 History warfarin 2 mg PO SUWE@16 11/02/19 11/02/19 History Patient History Medical History CAD (coronary artery disease), [place] coronary artery Cardiomyopathy Chronic anticoagulation Chronic systolic CHF (congestive heart failure) History of CVA (cerebrovascular accident) History of nephrolithiasis History of prostate cancer HTN (hypertension), benign Hyperlipidemia Multi-vessel coronary artery stenosis No significant active problems No significant family history Paroxysmal atrial fibrillation Surgical History History of cardiac cath History of cataract surgery History of lithotripsy History of prostatectomy History of tonsillectomy S/P CABG x 4 Family History Sister Family history of deafness or hearing loss Breast cancer Father Family history of rheumatic heart disease Other Family history non-contributory Social History Preferred Language: Qatari Communication Ability: Effective English Tutor Required: No Beliefs That Will Affect Care: None marital status: Single Current Living Situation: Alone current occupational status: retired Other Information That Helps Us Care for You: No Feels Safe at Home: Yes Safety Concerns: Feels Safe At This Time Smoking Status: Never smoker Second Hand Exposure: No ; Hx Alcohol Use: Yes Hx Substance Use: No Review of Systems Review of Systems: All systems reviewed & are unremarkable except as noted in HPI & below Physical Exam Physical Exam: Patient sitting in a chair eating breakfast. No obvious distress. Alert and oriented x3. No obvious distress. Constitutional: WD/WN, vitals as above Eyes: normal visual valdovinos by confrontation ENMT: external ear and nose normal, oropharynx normal Neck: normal visual inspection Respiratory: normal respiratory effort Cardiovascular: Vessels: dorsalis pedis pulses present Extremities: normal capillary refill Gastrointestinal (Abdomen): Inspection/Auscultation: abdomen normal to inspection Musculoskeletal: no cyanosis or clubbing, extremities motor strength 5/5 Extremities: strength 5/5 throughout Skin: no rashes, warm and dry Neurologic: normal touch/pain/proprioception, deep tendon reflexes 2+ bilaterally and moves all extremities Psychiatric: A+Ox3, euthymic affect Results & Data ([facility]) Vital Signs (Past 12 Hours) Vital Signs Temp Pulse Resp BP Pulse Ox 11/03/19 07:16 36.6 C 63 14 147/56 H 99 11/03/19 00:09 36.7 C 68 14 139/63 97 Diagnostic Findings [place], [place] [phone] CT Scan Report Patient: RAMIREZ RIVERA Date: 11/02/19 MR#: [id number]: [address] Acct ID:[id number]: Date: 1935ity Zip: [place] [address] Age: 84Location: ED Sex: M Room/Bed: Att Phy:Diagnosis: BACK INJURY Lexy Phy: Kamar Pepe M.D.Service Date: 11/02/19 Fam Phy:Interpreting Phy: Dave Umana MD Admit Phy: Ordering Phy: Gerhard Jacobson MD cc: ~ CT lumbar spine wo con CLINICAL HISTORY: Back Pain COMPARISON STUDY: Lumbar spine radiographs June 28, 2019. Lumbar spine MRI September 06, 2019. TECHNIQUE: Axial images of the lumbar spine were obtained without IV contrast. Sagittal and coronal reconstructions were viewed. Automated exposure control was utilized for the study. A dose lowering technique was utilized adhering to the principles of ALARA. FINDINGS: For purposes of numbering on this examination, the L5-S1 disc space is assigned to axial image 306 of 378. Utilizing this numbering scheme, L5 and represents a transitional vertebra which is partially sacralized. There is slight rightward curvature of the lumbar spine. There is a probable mild compression fracture involving the inferior endplate of T12 which is partially imaged on this exam. This is new since MRI of September 06, 2019. A Schmorl's node along the superior endplate of L3 is noted. No acute lumbar spine fracture. There is no suspicious osseous lesion. The sacroiliac joints are intact. The central canal and neural foramen are suboptimally assessed given CT technique. There is severe central canal stenosis at L3-L4 which is better depicted on prior MRI. IMPRESSION: 1. Probable mild compression fracture involving the inferior endplate of T12 which is partially imaged on this examination. 2. No acute lumbar spine fracture. 3. Transitional vertebra at the lumbosacral junction which is designated as L5 for purposes of numbering on this exam. Please see above numbering scheme. 4. Severe central canal stenosis at L3-L4 due to disc bulge, ligamentous hypertrophy and facet arthrosis. ACT 112: Negative or not required by law. Electronically signed by: Dave Umana M.D. 11/02/2019 12:33 PM Dictated: 11/02/19 1223 Transcribed: 11/02/19 1223 [place], [place] [phone] Magnetic Resonance Report Patient: RAMIREZ RIVERA Date: 09/06/19 MR#: [id number]: [address] Acct ID:[id number]: [facility] Zip: [place] [address] Age: 84Location: MRI Sex: M Room/Bed: Att Phy: Kamar Pepe M.D.Diagnosis: LOW BACK PAIN, PROSTATE CA Lexy Phy: Kamar Pepe M.D.Service Date: 09/06/19 Fam Phy:Interpreting Phy: Amos Leroy MD Admit Phy: Ordering Phy: Kamar Pepe M.D. cc: ~ MR lumbar spine wo con CLINICAL HISTORY: 84 years-old Male presenting with LOW BACK PAIN, PROSTATE CA, recent long drive with resultant back pain, leg weakness, radiculopathy down both lower extremities. TECHNIQUE: Multisequence, multiplanar MR imaging of the lumbar spine was performed without the use of intravenous contrast. IV contrast: None. COMPARISON: Plain radiographs from 06/28/2019. FINDINGS: Localizer images: Unremarkable. Normal lumbar lordosis. Endplate edema noted at L2-3 and L3-4 likely on a degenerative basis. No fluid in the intervertebral discs. Prominent Schmorl's nodes. Fatty endplate changes also evident. Vertebral bodies otherwise maintain normal height, alignment, and bone marrow signal intensity. Intervertebral disc desiccation diffusely with moderate height loss at L2-3 and mild to moderate height loss at L3-4. A level by level analysis is further given below: L1-2: Trace disc bulge. No significant spinal canal or neural foraminal narrowing. L2-3: Trace disc bulge with minimal if any effacement of the ventral thecal sac. Minimal bilateral neural foraminal narrowing. L3-4: Disc bulge with moderate to severe effacement of the ventral thecal sac. Trace if any CSF signal remains. No annular fissure is evident. No focal disc protrusion. Facet arthropathy and ligamentum flavum thickening. Fluid noted in the facet joints. Moderate bilateral neural foraminal narrowing. L4-5: Mild disc bulge with minimal effacement of the ventral thecal sac. Mild facet arthropathy, left greater than right. No significant neural foraminal narrowing. L5-S1: No significant spinal canal or neural foraminal narrowing. Transitional lumbosacral anatomy of L5. Spinal cord terminates in good position at L1-2. Questionable cauda equina buckling as a result of the stenosis at L3-4. Trace epidural edema along the posterior cortex of L3 associated with the L3-4 disc bulge. No paraspinal muscle edema. Sacrum grossly normal. Flow voids within the vasculature preserved. Remaining visualized soft tissues within normal limits. IMPRESSION: 1. Severe spinal canal stenosis at L3-4 with findings suspicious for cauda equina impingement. Correlate for symptomatology. 2. Multilevel degenerative changes with moderate neural foraminal narrowing at L3-4. The report will be called/faxed according to standard departmental protocol. ACT 112: Negative or not required by law. Electronically signed by: Amos Leroy M.D. 09/06/2019 12:32 PM Dictated: 09/06/19 1224 Transcribed: 09/06/19 1224
--- NOTE | 2019-11-03 10:24 | CT Scan Report ---
ABDOMEN AND PELVIS CT WITHOUT CONTRAST CT DOSE: 375.69 mGy.cm HISTORY: left sided back pain,T12 fracture,r/o stone TECHNIQUE: Multiaxial CT images of the abdomen and pelvis were performed without contrast. A dose lo wering technique was utilized adhering to the principles of ALARA. COMPARISON STUDY: Lumbar spine CT 11/02/2019. FINDINGS: There is an acute mild anterior wedge-shaped compression fracture at T12. No associated ret ropulsion. This demonstrates up to 15 % loss of height anteriorly. There is mild peritumoral edema at this location. The lung bases are clear. No pneumoperitoneum. No pneumatosis. Poststernotomy changes . Small hiatus hernia. Tiny fat-containing umbilical hernia. Surgical clips within the pelvis from pr ior prostatectomy. The bladder is decompressed. Colonic diverticulosis. There are suboptimal evaluati on for bowel pathology due to the lack of intravenous and oral contrast. However, there is no definit e bowel wall thickening or obstruction. Normal appendix. Calcified plaque within the normal caliber a bdominal aorta. The unenhanced liver, gallbladder, spleen, adrenal glands, and pancreas are unremarka ble. No renal or ureteral stones. No hydronephrosis. A few bilateral renal hypodense lesions are note d. These are incompletely characterized on this noncontrast study but statistically represent cysts. IMPRESSION: 1. No renal or ureteral stones. No hydronephrosis. 2. Redemonstration of the acute mild anterior wedge-shaped compression fracture at T12. No associated retropulsion. 3. Colonic diverticulosis. No evidence for diverticulitis. 4. Additional findings as described above. ACT 112: Negative or not required by law. Electronically signed by: Carloz Renae M.D. 11/03/2019 10:23 AM
--- NOTE | 2019-11-03 14:03 | Hospitalist Progress Note ---
Date of Service November 03, 2019 Assessment & Plan (1) Fall: Presented with mechanical fall while taking off shorts, no LOC, no other injuries except T12 compression fracture as below. No prodromal symptoms. PT/OT evals appreciated (2) Compression fracture: T12 with 15% height loss, appears acute on CT L-spine and CT abd/pelvis, no retropulsion, no focal neuro deficits on exam. -appreciate Ortho Spine consult-recommends TLSO brace, pain control - add VOltaren gel, dc IV morphine and oxycodone as he said that hydrocodone worked great for him-has only taken one dose thus far since admission -add back hydrocodone prn -continue scheduled Tylenol - awaiting PT eval to see if needs rehab placement as has steps in split level home and lives alone (3) Low back pain: acute, secondary to T12 compression fracture CT L-spine reviewed with partially imaged T12 compression fx -CT abd/pel ordered this AM to assess rest of T-spine at site of pain as well as to r/o retroperitoneal hemorrhage , kidney stone, or other causes of lower back pain--> confirms T12 fx but nothing else acute -continue pain control as above -PT/OT evals (4) Spinal stenosis: Severe central canal stenosis at L3-L4 due to disc bulge, ligamentous hypertrophy and facet arthrosis seen on CT and is established care already with Pain Management Dr. Araujo -awaiting outpt steroid injection and this can be done as outpt This pain he has been having for a while, radiates down both legs all the way to the feet (5) CAD, multiple vessel: - August 2018 underwent 4-vessel CABG at [facility] - Continue aspirin, simvastatin, carvedilol -Follows with cariology, Dr. Whittington, as outpatient No ongoing chest pain (6) Paroxysmal atrial fibrillation: Patient unaware of such a diagnosis, but is noted in all Cardiology notes. He says he was placed on Coumadin due to being high risk for LV thrombus as he h ad low EF at 22% back in 2009. He had a CVA at that time. His LVEF is now normalized, but he remains on coumadin for prevention of future CVA -continue COumadin and increase dose to 2mg daily as he is subtheraputic (7) Dyslipidemia: -Continue simvastatin 40 mg at bedtime (8) Hypertension: -Continue carvedilol 12.5 mg twice daily (9) Anemia: -History of such, hemoglobin 12.9 on admission, appears to be much improved compared to previously outpt f/u (10) Cardiomyopathy: Previous severe CM, now resolved with CABG and medical management follows with Cardio -continue Coreg -is not on ACEi (11) DVT prophylaxis: - teds, Coumadin CODE: DNR/DNI Dispo: awaiting PT eval to see if pt needs rehab placement vs home with home health, needs continued pain control Admission and Anticipated Discharge Date Admission Date: November 02, 2019 Anticipated date of discharge: 11/04/19 Subjective Still having 3/10 pain at rest which is much worse with sitting up in bed and walking around. Pain located in lower back and non-radiating. This is not similar to his lumbar radiculopathy pain for which he is going ot have YONY. No bowel or bladder issues but had severe abd cramping with bisacodyl this AM which is now resolved iwht having a BM. No trouble with bladder, no numbness/tingling or weakness in the legs Denies CP/SOB/lightheadedness Review of Systems Review of Systems: All systems reviewed & are unremarkable except as noted in HPI & below Physical Exam Constitutional: WD/WN, vitals as above Eyes: + anicteric sclerae Neck: trachea midline, no thyromegaly Respiratory: normal respiratory effort, lungs clear to auscultation Cardiovascular: RRR, no murmur, no edema Chest (Breasts): Chest: normal inspection of chest Gastrointestinal (Abdomen): normal bowel sounds, soft, nontender, no hepatosplenomegaly Musculoskeletal: Extremities: extremities normal to inspection; no cyanosis and no clubbing Skin: no rashes, warm and dry Neurologic: moves all extremities and awake; + abnormal deep tendon reflexes (1+ and symmetric in patellar and Achilles bilat) and no focal motor deficits (5/5 strength in LEs throughout) Motor/Sensory: no sensory deficit (sensation intact to lt touch throughout LEs bilat) negative straight leg raise Psychiatric: A+Ox3, euthymic affect Lymphatic: no lymphedema Results & Data Results & Data ([facility]) Vital Signs (Past 12 Hours) Vital Signs Temp Pulse Resp BP Pulse Ox 11/03/19 07:16 36.6 C 63 14 147/56 H 99 Laboratory Results 11/03/19 11/02/19 Range/Units 06:17 15:54 PT 13.4 H 13.1 H (9.0-12.0) Seconds INR 1.3 H 1.3 H (0.9-1.1) Diagnostic Findings CT abd/pel: FINDINGS: There is an acute mild anterior wedge-shaped compression fracture at T12. No associated retropulsion. This demonstrates up to 15 % loss of height anteriorly. There is mild peritumoral edema at this location. The lung bases are clear. No pneumoperitoneum. No pneumatosis. Poststernotomy changes. Small hiatus hernia. Tiny fat-containing umbilical hernia. Surgical clips within the pelvis from prior prostatectomy. The bladder is decompressed. Colonic diverticulosis. There are suboptimal evaluation for bowel pathology due to the lack of intravenous and oral contrast. However, there is no definite bowel wall thickening or obstruction. Normal appendix. Calcified plaque within the normal caliber abdominal aorta. The unenhanced liver, gallbladder, spleen, adrenal glands, and pancreas are unremarkable. No renal or ureteral stones. No hydronephrosis. A few bilateral renal hypodense lesions are noted. These are incompletely characterized on this noncontrast study but statistically represent cysts. IMPRESSION: 1. No renal or ureteral stones. No hydronephrosis. 2. Redemonstration of the acute mild anterior wedge-shaped compression fracture at T12. No associated retropulsion. 3. Colonic diverticulosis. No evidence for diverticulitis. 4. Additional findings as described above. PG Care Time/CCT Total # of Minutes Spent Total Time Spent with Patient: Total time spent is greater than 50% in coordination of care (as documented) at patient's floor/unit and/or counseling patient: Coding Level of Care Code 56498 Subseq Hosp Care Lvl 2 Diagnoses Fall W19.XXXA Compression fracture Low back pain M54.5 Spinal stenosis M48.00 CAD, multiple vessel I25.10 Paroxysmal atrial fibrillation I48.0 Dyslipidemia E78.5 Hypertension I10 Anemia D64.9 Cardiomyopathy I42.9 DVT prophylaxis Z29.9
[2019-11-03] MEDS ORDERED: WARFARIN SOD 2 MG TAB PO SCH ×2 (16:00)
[2019-11-03] MEDS: DICLOFENAC SOD 1% GEL 100 GM TUBE EXT SCH ×2 (16:57→21:27)
[2019-11-03] MEDS: SIMVASTATIN 40 MG TAB PO SCH (21:28)
[2019-11-04] MEDS: ACETAMINOPHEN 500 MG TAB PO SCH ×2 (03:10→10:33)
[2019-11-04 06:42] LABS: INR 1.3 (0.9-1.1); Prothrombin Time 13.5 Seconds (9.0-12.0)
[2019-11-04] MEDS: SENNA 8.6 MG TAB PO SCH (08:39)
[2019-11-04] MEDS: POLYETHYLENE (MIRALAX) 17 GM PACK PO SCH (08:41)
[2019-11-04] MEDS: carvediloL 12.5 MG TAB PO SCH (08:42)
[2019-11-04] MEDS: ASPIRIN 81 MG ECTAB PO SCH (08:42)
[2019-11-04] MEDS: CHOLECALCIFEROL 1,000 UNITS 25 MCG TAB PO SCH (08:43)
[2019-11-04] MEDS: MULTIVITAMIN TAB PO SCH (08:43)
[2019-11-04] MEDS: DICLOFENAC SOD 1% GEL 100 GM TUBE EXT SCH ×2 (09:38→14:07)
[2019-11-04] MEDS ORDERED: WARFARIN SOD 1 MG TAB PO SCH (16:00)
--- NOTE | 2019-11-04 16:07 | Discharge Summary ---
Date of Service November 04, 2019 Admission HPI Per Admitting Provider This is an 84-year-old male with PMHx of CAD s/p four-vessel coronary artery bypass at [facility] [place], paroxysmal A. fib on Coumadin, chronic systolic CHF, HTN, HLD, history of CVA, prostate cancer, kidney stones who presents with worsening lower back pain. He has been [place] [facility] [place] as an outpatient at the beginning of September where it was determined that he would be a candidate for spinal injection. Since then his appointment had to be canceled because their machine was down, and has not been rescheduled since. He reports last night being at home getting undressed to go to bed, when he fell to the ground and landed on his buttocks. He denies LOC, dizziness prior to the event, and did not sustain trauma to any other area. he has previously worked to strengthen his balance with techniques learned previously PT/OT and has been able to put his socks on standing up. Reports his pain is located in the left lower back specifically, at rest is currently a 4/10, but earlier today was an 8/10 with minimal movement. He had significant difficulty walking last evening after his fall. He denies any other acute complaints. Pt took his routinely scheduled medications, lives at home alone. Principal Diagnosis T12 compression fracture Discharge Exam Constitutional WD/WN, vitals as above Eyes EOM intact bilaterally; no conjunctival abnormality ENMT external ear and nose normal, oropharynx normal Neck trachea midline, no thyromegaly normal visual inspection Respiratory normal respiratory effort, lungs clear to auscultation no respiratory distress Cardiovascular RRR, no murmur, no edema Gastrointestinal (Abdomen) Inspection/Auscultation: abdomen normal to inspection; abdomen not distended Musculoskeletal no cyanosis or clubbing, extremities motor strength 5/5 Skin no rashes, warm and dry Neurologic moves all extremities and awake Psychiatric Orientation: alert, oriented to person and cooperative Discharge Data Allergies Allergy/AdvReac Type Severity Reaction Status Date / Time No Known Allergies Allergy Verified 11/02/19 10:10 Consultations 11/02/19 14:23 ED Decision to Admit Stat 11/02/19 16:55 Consult Case Management - Discharge Planning Routine Consult Pain Management Routine Ordered Studies 11/02/19 10:45 CT lumbar spine wo con Stat 11/03/19 08:05 CT abd pelvis wo con Urgent Hospital Course (1) Compression fracture: T12 with 15% height loss, appears acute on CT L-spine and CT abd/pelvis, no retropulsion, no focal neuro deficits on exam. - Appreciate Ortho Spine consult-recommends TLSO brace, pain control - Discharged on limited [place], Voltaran gel, and rec for heat/ice and Bengay with lidocaine patches. On discharge, he was able to lie comfortably, stand comfortably, and mostly had pain with transitions. Will follow up with [facility]. (2) Fall: Presented with mechanical fall while taking off shorts, no LOC, no other injuries except T12 compression fracture as below. No prodromal symptoms. PT/OT evals appreciated (3) Low back pain: acute, secondary to T12 compression fracture CT L-spine reviewed with partially imaged T12 compression fx -CT abd/pel ordered this AM to assess rest of T-spine at site of pain as well as to r/o retroperitoneal hemorrhage , kidney stone, or other causes of lower back pain--> confirms T12 fx but nothing else acute -continue pain control as above -PT/OT evals (4) Spinal stenosis: Severe central canal stenosis at L3-L4 due to disc bulge, ligamentous hypertrophy and facet arthrosis seen on CT and is established care already with Pain Management Dr. Araujo -awaiting outpt steroid injection and this can be done as outpt This pain he has been having for a while, radiates down both legs all the way to the feet (5) CAD, multiple vessel: - August 2018 underwent 4-vessel CABG at - Continue aspirin, simvastatin, carvedilol -Follows with cariology, Dr. Whittington, as outpatient No ongoing chest pain (6) Paroxysmal atrial fibrillation: Patient unaware of such a diagnosis, but is noted in all Cardiology notes. He says he was placed on Coumadin due to being high risk for LV thrombus as he had low EF at 22% back in 2009. He had a CVA at that time. His LVEF is now normalized, but he remains on coumadin for prevention of future CVA -continue COumadin and increase dose to 2mg daily as he is subtheraputic (7) Dyslipidemia: -Continue simvastatin 40 mg at bedtime (8) Hypertension: -Continue carvedilol 12.5 mg twice daily (9) Anemia: -History of such, hemoglobin 12.9 on admission, appears to be much improved compared to previously outpt f/u (10) Cardiomyopathy: Previous severe CM, now resolved with CABG and medical management follows with Cardio -continue Coreg -is not on ACEi (11) DVT prophylaxis: - teds, Coumadin CODE: DNR/DNI Dispo: awaiting PT eval to see if pt needs rehab placement vs home with home health, needs continued pain control Total Time Total Time Spent Total Time Spent (In Minutes): 35 Discharge Plan Discharge Items Patient Disposition: Home - Home Health Services Reason For Visit: SPINAL STENOSIS, COMPRESSION FRACTURE, INTRACTABLE Discharge Diagnosis: T12 compression fracture Activity: Resume your previous activity Lifting: No more than 5 pounds Non-emergency contact: Primary Care Provider and Surgeon Call non-emergency contact if: your symptoms worsen Follow-up/Referrals: Kamar Berry MD [Primary Care Provider] - Diet: Heart Healthy Addtl Attending Provider Instructions: You were admitted for pain from a T12 compression fracture. We were able to improve the pain with medication to the extent that the orthopedics team doesn't feel surgery is necessary. This is great! Please work with [place] [facility] [place] doctors to be sure you're still feeling well. We are sending you home with a TLSO brace to be worn with activity. Continue with pain control and physical therapy. No lifting over 5 pounds. You can also use a Bengay with Lidocaine patch (which is [id number] and doesn't need a prescription) if it helps. Please see your PCP in 1 week to ensure you're still improving. Pending Studies at Discharge: No Stand-Alone Forms: My [facility], Opioid Pain Management, Smoking Cessation Medications and DC Order Prescriptions: New diclofenac sodium [Voltaren] 1 % Gel 2 g EXT QID PRN (Reason: back pain) Qty: 100 RF: 0 hydrocodone-acetaminophen [[place]] 5-325 mg Tablet 1 tab PO Q6 PRN (Reason: pain) Qty: 20 RF: 0 Continued carvedilol 12.5 mg tablet 12.5 mg PO BID Qty: 180 RF: 0 cholecalciferol (vitamin D3) 2,000 unit tablet 1,000 unit PO QAM RF: 0 aspirin 81 mg Tablet,Delayed Release (Dr/Ec) 81 mg PO QAM RF: 0 simvastatin 40 mg tablet 40 mg PO HS RF: 0 multivitamin [Multiple Vitamins] Tablet 1 tab PO DAILY RF: 0 warfarin 1 mg tablet 2 mg PO SUWE@16 RF: 0 warfarin 1 mg tablet 1 mg PO MOTUTHFRSA@16 RF: 0 Discharge Orders: Discharge Order (Routine); Ordered 11/04/19 Ordered By: Kavin Taylor/Other Patient Handouts: What to Know When TakingWarfarin, Brace TLSO Admission Data Admit Date/Time: 11/02/19 14:52 Attending Provider: Kavin Mccormick Admit Provider: Kavin Mccormick Primary Care Provider: Kamar Berry Other Providers: Kavin Mccormick ; Jakob Saunders ; Joseluis Mcintyre ; Theron Garrett ; Mirta Noble ; Nish Juarez ; Nissa Perdomo ; Alex Griffith ; Hesham Gillespie ; Lionel Mares ; Hesham Dickey ; Mann Galvin. ; Lionel Blake ; Rao Forrester ; Andrew Lacey ; Mark Villanueva ; Amos Pacheco ; Anthony King ; Nissa Guillen ; Donte Wolff ; Israel Meng ; Quita Oleary ; Gerhard Story ; Sameera Ng ; [facility] Other Interventions: Discharge Summary Assessment (RN) Last Done: 11/04/19 11:30 [place] Date/Time DO NOT enter until pt leaves facility: 11/04/19 15:11 Coding Level of Care Code D/C Day Management >30 mins Diagnoses Compression fracture Fall W19.XXXA Low back pain M54.5 Spinal stenosis M48.00 CAD, multiple vessel I25.10 Paroxysmal atrial fibrillation I48.0 Dyslipidemia E78.5 Hypertension I10 Anemia D64.9 Cardiomyopathy I42.9 DVT prophylaxis Z29.9
== END 2019-11-04 15:11 | disposition home health service (06) ==
LOC: ED 09:16 → SUATTDRO 14:52 → INTOOBSV 14:52 → 3W 14:52

== ENCOUNTER 2020-04-09 06:23 | Inpatient (IN) ==
--- NOTE | 2020-03-03 10:25 | PAT Medication Instructions ---
Medication Instructions Date of Service March 03, 2020 Home Medications Medication Instructions Recorded diclofenac sodium [Voltaren] 2 g EXT QID PRN #100 gm 11/04/19 carvedilol 12.5 mg tablet 12.5 mg PO BID #180 tab 01/08/20 aspirin 81 mg PO QAM simvastatin 40 mg PO HS cholecalciferol (vitamin D3) 50 mcg (2,000 unit) tablet 1,000 unit PO QAM multivitamin [Multiple Vitamins] 1 tab PO QAM diclofenac sodium [Voltaren] 2 g EXT QID PRN carvedilol 12.5 mg tablet 12.5 mg PO BID warfarin 2 - 3 mg PO QAM ASK your prescriber and surgeon warfarin 2 - 3 mg PO QAM STOP taking 24 hours before surgery diclofenac sodium [Voltaren] 2 g EXT QID PRN DO NOT take the morning of surgery cholecalciferol (vitamin D3) 50 mcg (2,000 unit) tablet 1,000 unit PO QAM multivitamin [Multiple Vitamins] 1 tab PO QAM Take morning of surgery With a small sip of water, OTHERWISE NOTHING TO EAT OR DRINK AFTER MIDNIGHT: aspirin 81 mg PO QAM carvedilol 12.5 mg tablet 12.5 mg PO BID Take evening before surgery simvastatin 40 mg PO HS carvedilol 12.5 mg tablet 12.5 mg PO BID Other Notes If you have any questions please call us at [phone] or [phone] or [phone] or [phone]
--- NOTE | 2020-03-04 11:45 | PAT Medication Instructions ---
Medication Instructions Date of Service March 04, 2020 Home Medications Medication Instructions Recorded diclofenac sodium [Voltaren] 2 g EXT QID PRN #100 gm 11/04/19 carvedilol 12.5 mg tablet 12.5 mg PO BID #180 tab 01/08/20 aspirin 81 mg PO QAM simvastatin 40 mg PO HS cholecalciferol (vitamin D3) 50 mcg (2,000 unit) tablet 1,000 unit PO QAM multivitamin [Multiple Vitamins] 1 tab PO QAM diclofenac sodium [Voltaren] 2 g EXT QID PRN carvedilol 12.5 mg tablet 12.5 mg PO BID warfarin 2 - 3 mg PO QAM ASK your surgeon for instructions diclofenac sodium [Voltaren] 2 g EXT QID PRN ASK your prescriber and surgeon warfarin 2 - 3 mg PO QAM DO NOT take the morning of surgery cholecalciferol (vitamin D3) 50 mcg (2,000 unit) tablet 1,000 unit PO QAM multivitamin [Multiple Vitamins] 1 tab PO QAM Take morning of surgery With a small sip of water, OTHERWISE NOTHING TO EAT OR DRINK AFTER MIDNIGHT: aspirin 81 mg PO QAM carvedilol 12.5 mg tablet 12.5 mg PO BID Take evening before surgery simvastatin 40 mg PO HS carvedilol 12.5 mg tablet 12.5 mg PO BID Other Notes If you have any questions please call us at [phone] or [phone] or [phone] or [phone]
--- NOTE | 2020-03-05 08:27 | Anesthesiology Consultation ---
Date of Service March 05, 2020 Assessment & Plan (1) Encounter for pre-operative examination: Chart Review Chart Review: Pending: Refer to Additional Notes / Consult section (pending UA, PCP/cardio clearance and preop Covid testing ) and Patient seen in Pre Admission Testing - Check coags AM DOS Pt could not void at PAT appt- given order and supplies by blood bank laboratory technologist- patient will drop UA off at [facility] in near future. Awaiting surgeon ordered medical (03/09) and cardio (03/20) clearances Per PAT appt on 03/05/20, resides in [facility]. Wears mask, uses good hand hygiene and socially distances. No known Covid positive contacts or Covid related symptoms. Scheduled for preop Covid testing 03/20/20. Educated on importance of self quarantining, social distancing and wearing mask in public both for the patient and household contacts. Teaching & Discussion Pre-Anesthesia Teaching/Discussion Notes: Instructed NPO after midnight before surgery,except medications with 15 cc of water. Medication instructions pro vided according to the [facility] guidelines. History Surgery Operation Date: 03/27/20 07:45 Proposed Procedures p L3-L4 Decompression Coflex - Jakob Saunders, Height/Weight Height: 5 ft 7 in Weight: 71.5 kg Allergies Allergy/AdvReac Type Severity Reaction Status Date / Time No Known Allergies Allergy Verified 02/28/20 08:34 Medications Home Medications Medication Instructions Recorded Confirmed Last Taken aspirin 81 mg PO QAM 08/30/18 02/28/20 11/02/19 simvastatin 40 mg PO HS 08/30/18 02/28/20 11/01/19 cholecalciferol (vitamin D3) 50 1,000 unit PO QAM tab 11/06/18 02/28/20 11/02/19 mcg (2,000 unit) tablet multivitamin [Multiple Vitamins] 1 tab PO QAM 11/02/19 02/28/20 11/02/19 diclofenac sodium [Voltaren] 2 g EXT QID PRN #100 gm 11/04/19 02/28/20 Unknown carvedilol 12.5 mg tablet 12.5 mg PO BID #180 tab 01/08/20 02/28/20 Unknown warfarin 2 - 3 mg PO QAM 02/28/20 02/28/20 Unknown Past Medical History Medical History (Updated 03/05/20 @ 16:10 by Chel Christiansen PA-C) CAD (coronary artery disease), [place] coronary artery S/p 4 vessel CABG 08/2018 Cardiomyopathy Chronic anticoagulation Chronic systolic CHF (congestive heart failure) History of CVA (cerebrovascular accident) 2009 NO RESIDUAL EFFECTS-NO ISSUES SINCE PER PT History of prostate cancer s/p prostatectomy 1991- no chemo or XRT HTN (hypertension), benign Hyperlipidemia LBBB (left bundle branch block) Chronic Paroxysmal atrial fibrillation Exercise / Class Metabolic Activity II 4-5 Yardwork/Stairs/Walk up hill (one flight of stairs - no chest pain or SOB) Past Family History Family History Sister Family history of deafness or hearing loss Breast cancer Father Family history of rheumatic heart disease Brother Family history of diabetes mellitus Other Family history non-contributory Past Surgical History Surgical History History of cardiac cath 08/2018 [facility]-NO STENTS PLACED History of cataract surgery R/L History of colonoscopy History of lithotripsy History of prostatectomy [facility] 02/1992 History of tonsillectomy S/P CABG x 4 [facility]-2019 Past Anesthesia History No Hx of Anesthesia Complications and No Family Hx of Anesthesia Complications History of PONV No Hx of PONV and No Hx of Motion Sickness Social History Smoking Status: Never smoker Do You Dip or Chew Tobacco: No Hx Alcohol Use: Yes Alcohol type: beer and wine alcohol intake frequency: holidays/special occasions only Hx Substance Use: Yes substance use type: marijuana Substance Use Type Other:: MEDICAL MARIJUANA CARD 100% THC DROPS-MIX IN FOOD QAM Review of Systems Occ reflux- relieved with Tums Hx of blood transfusion- s/p prostatectomy Patient denies chest pain, shortness of breath, dyspnea on exertion, cough, wheezing, palpitations. No hx of seizures, [place], apnea/snoring. No hx of blood clots. Physical Exam Vital Signs VITALS BP 171/78 (usually well controlled per patient) P 62 TEMP 97.5 SP02 99% RESP 16 Constitutional no acute distress ENMT Mouth: no TMJ clicking Thyromental Distance: > or= 3.5 Finger Breadths (3.5) Mallampati Class: I Missing molars and side teeth Crowns to most front teeth Neck neck extension not limited Respiratory normal respiratory effort; no respiratory distress Auscultation: lungs clear to auscultation bilaterally; no wheezes Cardiovascular Rate/Rhythm: + irregularly irregular (rate controlled ) Heart Sounds: no murmur Vessels: no carotid bruit Musculoskeletal Spine: no pain with cervical ROM Extremities: extremities normal to inspection Psychiatric Orientation: alert Testing Laboratory Results 03/05/20 08:49 03/05/20 08:49 PT 29.2 Seconds (9.0-12.0) H 03/05/20 08:49 INR 2.9 (0.9-1.1) H 03/05/20 08:49 APTT 38.4 Seconds (21.0-31.0) H 03/05/20 08:49 Blood Type A Positive 03/05/20 08:49 Antibody Screen NEGATIVE 03/05/20 08:49 Electrocardiogram Date: 03/05/20 Findings: + NSR @ (67) Left axis deviation. Left bundle branch block. When compared to EKG from Nov 15, 2018- no significant change per cardio Chest X-Ray Date: 03/05/20 Findings: + NAD Chronic pleural thickening of the lung apices. No pneumothorax, pleural effusion, airspace consolidation or overt pulmonary edema. Mild diaphragmatic flattening. Progressively worsened compression deformity at T12, worsened from 11/03/2019 without retropulsion. Echocardiogram Date: 08/30/18 EF: 50-55% LV Function: normal (Low normal) Other Findings: + LVH (Moderate/concentric) Akinesis of the basal to mid inferior wall. Anterior septum with paradoxical motion consistent with bundle branch block and post cardiac surgery state. Very small anterior fat pad versus very small pericardial effusion without echocardiographic evidence of tamponade physiology. Stress Test Date: 08/10/18 Type: nuclear Abnormal stress test. Large perfusion defect involving mid to apical anterior, septal and inferior [place] with significant reversible component. Suspect some contribution from left bundle branch block to septal defect but overall findings consistent with possible multivessel disease with high risk ischemia. Normal LV size, mild LV dysfunction. LVEF 43 % with abnormal septal motion, apical akinesis. Non-diagnostic stress ECG due to inability to reach target HR with Lexiscan and resting left bundle branch block. (Pt had subsequent cath and 4 vessel CABG 08/2018) Cardiac Catheterization Date: 05/06/19 Severe multivessel coronary artery disease -95% mid LAD, 50% mid LAD at bifurcation of second diagonal with 80% ostial stenosis 90% proximal RCA 70% proximal OM 2 (Had subsequent 4 vessel CABG)
--- NOTE | 2020-03-05 09:48 | XRay Report ---
XR chest Pre-admission PA/Lat HISTORY: 85 years-old Male pat preoperative exam. No acute chest complaints. COMPARISON: Chest radiographs 11/15/2018, CT lumbar spine 11/02/2019, CT abdomen and pelvis 11/03/2019. TECHNIQUE: PA and lateral views of the chest FINDINGS: Cardiomediastinal and hilar silhouettes are within normal limits. Prior median sternotomy with CABG. Chronic pleural thickening of the lung apices. No pneumothorax, pleural effusion, airspace consolidat ion or overt pulmonary edema. Mild diaphragmatic flattening. Degenerative changes of the shoulders an d spine. There is progressively worsened compression deformity at T12 without significant retropulsio n. IMPRESSION: 1. No acute processes of the chest. 2. Progressively worsened compression deformity at T12, worsened from 11/03/2019 without retropulsion. ACT 112: Negative or not required by law. The above report was generated using voice recognition software. It may contain grammatical, syntax o r spelling errors. Electronically signed by: Sesar Joseph M.D. 03/05/2020 9:47 AM
[2020-03-05 10:25] LABS: Mean Corpuscular Hgb Conc 33.3 g/dL (32-36)
[2020-03-05 10:32] LABS: Hematocrit (blood only) 41.4 % (42-52); Hemoglobin 13.8 g/dL (14.0-18.0); Mean Corpuscular Hemoglobin 33.1 pg (25-34); Mean Corpuscular Volume 99.3 fL (80-100); RDW Coefficient of Variation 13.5 % (11.5-14.5); RDW Standard Deviation 48.7 fL (36.4-46.3); Red Blood Count 4.17 M/uL (4.7-6.1)
[2020-03-05 10:36] LABS: INR 2.9 (0.9-1.1); Partial Thromboplastin Ratio 1.4; Partial Thromboplastin Time 38.4 Seconds (21.0-31.0); Prothrombin Time 29.2 Seconds (9.0-12.0)
[2020-03-05 10:37] LABS: BUN Creatinine Ratio 19.3 (10-20); Calcium 9.6 mg/dl (8.5-10.1); Creatinine Clr Calc Pharmacy 52.6 ml/min; Est GFR (African American) 83.2; Est GFR (Non-African American) 71.8; Potassium 4.6 mmol/L (3.5-5.1)
[2020-03-05 11:07] LABS: Basophils # (auto) 0.02 K/uL (0-0.2); Basophils % (auto) 0.3 %; Eosinophils # (auto) 0.06 K/uL (0-0.5); Eosinophils % (auto) 0.8 %; Lymphocytes # (auto) 1.52 K/uL (1.2-3.4); Lymphocytes % (auto) 19.5 %; Mean Platelet Volume 13.2 fL (7.4-10.4); Monocytes % (auto) 7.7 %; Neutrophils % (auto) 71.7 %; Platelet Count 140 K/uL (130-400); Platelet Estimate Normal (Normal)
--- NOTE | 2020-03-06 05:35 | Electrocardiogram Report ---
Test Reason : Blood Pressure : / mmHG Vent. Rate : 067 BPM Atrial Rate : 067 BPM P-R Int : 118 ms QRS Dur : 162 ms QT Int : 456 ms P-R-T Axes : 031 -38 168 degrees QTc Int : 481 ms Normal sinus rhythm Left axis deviation Left bundle branch block Abnormal ECG When compared with ECG of 15-NOV-2018 08:09, No significant change Confirmed by Dong Gutierrez ([id number]) on 03/06/2020 5:35:20 AM Referred By: Jakob Saunders Confirmed By:Dong Gutierrez
[2020-03-06 12:49] LABS: Appearance Urine Cloudy (Clear); Bacteria Urine Automated 3+ (Negative); Bilirubin Urine Negative (Negative); Blood Urine Negative (Negative); Cast Urine Automated 0 /lpf (0-5); Color Urine Yellow; Glucose Urine UA Negative (Negative); Ketones Urine Negative (Negative); Leukocyte Esterase Urine Negative (Negative); Nitrite Urine Negative (Negative); Protein Urine Negative (Negative); RBC Urine Automated 0-4 /hpf (0-4); Specific Gravity Urine 1.021 (1.000-1.030); Urobilinogen Urine Negative (Negative)
[2020-03-06 12:58] LABS: Calcium Oxalate Crystals Urine Present (None Prsent)
[~2020-04-09 06:23] MED LIST changes: +ACETAMINOPHEN 500 MG TAB PO SCH; -ASPCH81X PO; -CMD3 PO; -CRG125 PO; +CeleBREX 200 MG CAP PO SCH; +GABAPENTIN 300 MG CAP PO SCH; -LISI-729 PO; +LR 15ML/HR IV SCH; -NORT25CA PO; -SIMV20TA2 PO; +ceFAZolin 1000MG 1,000 MG/7.5 ML SYR IV SCH
[2020-04-09] MEDS ORDERED: GABAPENTIN 300 MG CAP ONE (06:36)
[2020-04-09] MEDS ORDERED: ACETAMINOPHEN 500 MG TAB ONE (06:36)
[2020-04-09] MEDS ORDERED: CeleBREX 200 MG CAP ONE (06:36)
[2020-04-09] MEDS ORDERED: BACITRACIN INJ 50,000 UNIT VIAL ONE (06:59)
[2020-04-09] MEDS ORDERED: BUPIVACAINE/EPINEPHRINE 0.5% MPF 1:200,000 30 ML VIAL ONE (06:59)
[2020-04-09 07:05] LABS: INR 1.1 (0.9-1.1); Partial Thromboplastin Ratio 0.9; Partial Thromboplastin Time 25.6 Seconds (21.0-31.0); Prothrombin Time 11.4 Seconds (9.0-12.0)
[2020-04-09] MEDS ORDERED: ATROPINE SULFATE 0.1 MG/ML 10ML SYR IV PRN (07:05)
[2020-04-09] MEDS ORDERED: fentaNYL citrate 100 MCG/2 ML VIAL IV PRN (07:05)
[2020-04-09] MEDS ORDERED: ePHEDrine sulfate 50 MG/ML AMP IV PRN (07:05)
[2020-04-09] MEDS ORDERED: ONDANSETRON INJ 2 MG/ML 2 ML VIAL IV PRN ×2 (07:05→13:13)
[2020-04-09] MEDS ORDERED: HYDROmorphone INJ 2 MG/ML SYR/VIAL IV PRN (07:05)
[2020-04-09] MEDS ORDERED: fentaNYL citrate 100 MCG/2 ML VIAL ONE (07:07)
[2020-04-09] MEDS ORDERED: LR 15ML/HR IV SCH (07:15)
--- NOTE | 2020-04-09 07:33 | History & Physical Bridge Note ---
Date of Service April 09, 2020 History & Physical Bridge Note I have examined the patient, reviewed the History & Physical and in the interval since the performance of the History & Physical I have noted the following changes of clinical significance: no changes noted
--- NOTE | 2020-04-09 07:35 | History & Physical Report ---
Date of Service April 09, 2020 Assessment & Plan (1) Neurogenic claudication due to lumbar spinal stenosis: Admission and Anticipated Discharge Date Admission Date: L3-L4 decompression with Coflex History of Present Illness Chief Complaint: Back and bilateral leg pain Primary Care Provider: Kamar Berry MD This is an 85-year-old male who presents with chronic persistent back and bilateral leg pain. Failing course of nonoperative care is here for surgical invention. Allergies Allergy/AdvReac Type Severity Reaction Status Date / Time No Known Allergies Allergy Verified 04/09/20 06:52 Home Medications Medication Instructions Recorded Confirmed Type aspirin 81 mg PO QAM 08/30/18 04/09/20 History simvastatin 40 mg PO HS 08/30/18 04/09/20 History cholecalciferol (vitamin D3) 50 1,000 unit PO QAM tab 11/06/18 04/09/20 History mcg (2,000 unit) tablet multivitamin [Multiple Vitamins] 1 tab PO QAM 11/02/19 04/09/20 History diclofenac sodium [Voltaren] 2 g EXT QID PRN #100 gm 11/04/19 04/09/20 Rx carvedilol 12.5 mg tablet 12.5 mg PO BID #180 tab 01/08/20 04/09/20 Rx warfarin 2 - 3 mg PO QAM 02/28/20 04/09/20 History Past Med/Surg History Medical History (Updated 04/09/20 @ 07:34 by Jakob Saunders DO) CAD (coronary artery disease), [place] coronary artery S/p 4 vessel CABG 08/2018 Cardiomyopathy Resolved per cardio Chronic anticoagulation Chronic systolic CHF (congestive heart failure) History of CVA (cerebrovascular accident) 2009 NO RESIDUAL EFFECTS-NO ISSUES SINCE PER PT History of prostate cancer s/p prostatectomy 1991- no chemo or XRT HTN (hypertension), benign Hyperlipidemia LBBB (left bundle branch block) Chronic Paroxysmal atrial fibrillation Surgical History History of cardiac cath 08/2018 [facility]-NO STENTS PLACED History of cataract surgery R/L History of colonoscopy History of lithotripsy History of prostatectomy [facility] 02/1992 History of tonsillectomy S/P CABG x 4 [facility] [place] Family History Sister Family history of deafness or hearing loss Breast cancer Father Family history of rheumatic heart disease Brother Family history of diabetes mellitus Other Family history non-contributory Social History Smoking Status: Never smoker Second Hand Exposure: No; Do You Dip or Chew Tobacco: No; Hx Alcohol Use: Yes Alcohol type: beer and wine Hx Substance Use: No Preferred Language: Italian Communication Ability: Effective Express Manager Required: No Beliefs That Will Affect Care: None marital status: Single Current Living Situation: Alone current occupational status: retired Other Information That Helps Us Care for You: No Feels Safe at Home: Yes Safety Concerns: Feels Safe At This Time Assistive Devices: Glasses, Hearing Aid - Bilateral and Walker Assistive Devices Comment: WILL BRING HEARING AIDES DOS AND CASE/CANE PRN Physical Exam Physical Exam: Patient is alert and oriented Heart regular rate and rhythm Lungs clear to auscultation Results & Data ([facility]) Vital Signs (Past 12 Hours) Vital Signs Temp Pulse Resp BP Pulse Ox 04/09/20 06:39 36.4 C L 65 18 168/87 H 99
[2020-04-09] MEDS ORDERED: ePHEDrine sulfate 50 MG/ML SYR ONE (08:09)
[2020-04-09] MEDS ORDERED: NEOSTIGMINE METHYLSULFATE 1 MG/ML 10ML VIAL ONE (08:09)
[2020-04-09] MEDS ORDERED: LARYING-O-JET KIT (LTA) ONE (08:09)
[2020-04-09] MEDS ORDERED: ROCURONIUM BROMIDE 10 MG/ML 5 ML VIAL IV ONE (08:09)
[2020-04-09] MEDS ORDERED: PHENYLEPHRINE 100MCG/ML 5ML SYR ONE (08:09)
[2020-04-09] MEDS ORDERED: LIDOCAINE HCL 2% 2 ML VIAL/AMP(20MG/ML) INFIL ONE (08:09)
[2020-04-09] MEDS ORDERED: GLYCOPYRROLATE 0.2 MG/ML VIAL ONE (08:09)
[2020-04-09] MEDS ORDERED: PROPOFOL IV EMULSION 10 MG/ML 20 ML VIAL IV ONE (08:09)
[2020-04-09] MEDS ORDERED: DEXAMETHASONE SOD INJ 4 MG/ML VIAL ONE (08:09)
[2020-04-09] MEDS ORDERED: ONDANSETRON INJ 2 MG/ML 2 ML VIAL ONE (08:09)
[2020-04-09] MEDS ORDERED: FLOSEAL HEMOSTATIC MATRIX 10ML TOP ONE (08:14)
--- NOTE | 2020-04-09 08:54 | Operative Report ---
Post Operative Report Pre & Post Diagnosis Operation Date: 04/09/20 07:45 Lumbar spinal stenosis with neurogenic claudication I identified the patient and participated in the time-out.: Yes Procedure Operation Date: 04/09/20 07:45 #1 lumbar decompression with bilateral medial facetectomies foraminotomies L3- L4. #2 placement of Coflex 12 mm interlaminar construct. Surgeon Jakob Saunders, DO Jewel Bearing Driller Rao Forrester Estimated Blood Loss 15 Findings Consistent with Post-Op Diagnosis Specimens None Indications This is an 85-year-old male who presents with significant lumbar spinal stenosis and neurogenic claudication after failing course of nonoperative care is here for surgical invention. Description of Procedure Patient was met with identified informed consent obtained. Patient was then taken to the operative suite underwent ablation placed in a prone position in the Mann table on top Noah frame. All bony prominences well-padded eyes inspected to ensure no external pressure placed upon. This point the lumbar spine was prepped and draped no sterile fashion. Sharp dissection with assistance pericardial was then performed down to and exposing the interlaminar space at L3-4. I verified my position with fluoroscopy. And performed a midline decompression including bilateral medial facetectomies to address severe spinal stenosis. After this complete a 12 mm Coflex interlaminar construct was tapped into position and crimped into place. The incision was then copiously irrigated 10 round ANAIS drain inserted. Was then closed with 1 Vicryl fascia 2-0 Vicryl subcutaneously and 4 Monocryl for final skin closure. Steri-Strip sterile dressings placed. Patient waken taken to PACU stable condition. Please note Rao alejandro was present throughout the entire procedure involved the patient positioning complex portions of the surgery and final skin closure. I attest to the content of the Intraoperative Record and any orders documented therein. Any exceptions are noted below.
--- NOTE | 2020-04-09 08:58 | Fluoroscopy Report ---
INTRAOPERATIVE RADIOGRAPH CLINICAL HISTORY: L3-L4 decompression. Fluoroscopy time: 6 seconds. FINDINGS: A single spot fluoroscopic view of the lumbar spine is presented. A Coflex device is seen p osteriorly at the level of L3-L4. Spinal alignment is maintained. IMPRESSION: Intraoperative view of the lumbar spine as above. Electronically signed by: Herson Sosa M.D. 04/09/2020 8:56 AM
--- NOTE | 2020-04-09 10:57 | Anesthesiology Progress Note ---
Date of Service April 09, 2020 Anesthesia Post Procedure Vital Signs Vital Signs: Temp Pulse Pulse Resp BP Pulse Ox 04/09/20 10:30 36.5 C 56 L 12 162/71 H 99 04/09/20 10:15 58 L 15 166/82 H 99 04/09/20 10:00 56 L 14 161/77 H 99 04/09/20 09:50 36.4 C L 58 L 14 163/81 H 100 04/09/20 09:40 63 19 164/75 H 98 04/09/20 09:30 67 16 169/88 H 100 04/09/20 09:20 75 27 H 177/88 H 100 04/09/20 09:10 36.4 C L 81 16 169/86 H 98 04/09/20 06:39 36.4 C L 65 18 168/87 H 99 Pain Intensity Bilateral Leg: Pain Intensity: 0 Transfer of Care Handoff Completed per policy Notes Mental Status: alert / awake / arousable Patient Amnestic to Procedure: Yes Nausea / Vomiting: adequately controlled Pain: adequately controlled Airway Patency, RR, SpO2: stable & adequate BP & HR: stable & adequate Hydration State: stable & adequate Anesthetic Complications: no major complications apparent
[2020-04-09] MEDS ORDERED: traMADol HCL 50 MG TABLET PO PRN (13:13)
[2020-04-09] MEDS ORDERED: FAMOTIDINE 20 MG TAB PO PRN (13:13)
[2020-04-09] MEDS ORDERED: bisacodyL 10 MG SUPP PR PRN (13:13)
[2020-04-09] MEDS ORDERED: diphenhydrAMINE Capsule 25 MG CAP PO PRN (13:13)
[2020-04-09] MEDS ORDERED: METOCLOPRAMIDE HCL INJ 5 MG/ML 2 ML VIAL IV PRN (13:13)
[2020-04-09] MEDS ORDERED: DO NOT ADMINISTER PNEUMOCOCCAL VACCINE PRN (13:13)
[2020-04-09] MEDS ORDERED: ALUMINUM/MAGNESIUM SUSP 30 ML UDC PO PRN (13:13)
[2020-04-09] MEDS ORDERED: hydrOXYzine HCl 25 MG TAB PO PRN (13:13)
[2020-04-09] MEDS ORDERED: DICLOFENAC SOD 1% GEL 100 GM TUBE EXT PRN (13:13)
[2020-04-09] MEDS ORDERED: ACETAMINOPHEN 500 MG TAB PO PRN (13:13)
[2020-04-09] MEDS ORDERED: SOD PHOSPHATE/SOD BIPHOSPHATE ENEMA 132 ML BTL PR PRN (13:13)
[2020-04-09] MEDS ORDERED: MAGNESIUM HYDROXIDE SUSP 30 ML UDC PO PRN (13:13)
[2020-04-09] MEDS ORDERED: ACETAMINOPHEN 1,000 MG/100 ML VIAL IV PRN (13:13)
[2020-04-09] MEDS ORDERED: HYDROmorphone INJ 0.5 MG/0.5 ML SYR IV PRN (13:13)
[2020-04-09] MEDS ORDERED: ONDANSETRON 4 MG OD TAB PO PRN (13:13)
[2020-04-09] MEDS ORDERED: oxyCODONE HCL IR 5 MG TAB (IMMEDIATE RELEASE) PO PRN (13:13)
[2020-04-09] MEDS ORDERED: PROMETHAZINE HCL 12.5 MG in SODIUM CHLORIDE 0.9% 50 ML IV PRN (13:13)
[2020-04-09] MEDS ORDERED: LORazepam 0.5 MG/1 ML VIAL IV PRN (13:13)
[2020-04-09] MEDS ORDERED: LORazepam 0.5 MG TAB PO PRN (13:13)
[2020-04-09] MEDS ORDERED: DO NOT ADMINISTER FLU VACCINE PRN (13:13)
[2020-04-09] MEDS ORDERED: NALOXONE HCL 0.4 MG/1 ML VIAL/CARP IV PRN (13:13)
[2020-04-09] MEDS: LACTATED RINGER'S 1,000 ML IV SCH ×2 (13:31→19:21)
[2020-04-09] MEDS: MULTIVITAMIN TAB PO SCH (14:07)
[2020-04-09] MEDS: ASPIRIN 81 MG ECTAB PO SCH (14:08)
[2020-04-09] MEDS: CHOLECALCIFEROL 1,000 UNITS 25 MCG TAB PO SCH (14:09)
[2020-04-09] MEDS: carvediloL 12.5 MG TAB PO SCH ×2 (14:09→20:50)
--- NOTE | 2020-04-09 14:53 | Hospitalist Progress Note ---
Date of Service April 09, 2020 Assessment & Plan (1) Neurogenic claudication due to lumbar spinal stenosis: post op, appearing stable. per ortho (2) Multi-vessel coronary artery stenosis: stable no angina continue current meds (3) Cardiomyopathy: ischemic, with some regional wall motion abnormalities but preserved EF. no acute CHF noted at this time (4) DVT prophylaxis: per ortho (SCD) (5) Hypertension: follow BP - reasonable. current meds (6) Dyslipidemia: Admission and Anticipated Discharge Date Admission Date: April 09, 2020 Subjective feeling good no cardiac symptoms eating lunch no acute complaints Review of Systems Review of Systems: All systems reviewed & are unremarkable except as noted in HPI & below Physical Exam Physical Exam: gen aaox3 pleasant nad heent nc at mmm breathing unlabored no accessory muscles good effort skin no rashes no pallor or icterus neuro no focal deficits Results & Data Results & Data ([facility]) Vital Signs (Past 12 Hours) Vital Signs Temp Pulse Pulse Resp BP Pulse Ox 04/09/20 13:25 98.1 F 72 16 141/77 H 95 04/09/20 12:55 97.9 F 70 16 146/79 H 95 04/09/20 12:15 97.7 F 67 14 154/70 H 97 04/09/20 12:00 97.7 F 64 12 156/71 H 97 04/09/20 11:45 97.7 F 65 15 148/75 H 98 04/09/20 11:30 97.7 F 65 15 166/70 H 97 04/09/20 11:15 97.7 F 67 23 151/60 H 95 04/09/20 11:00 97.7 F 71 16 131/62 98 04/09/20 10:45 97.7 F 61 15 160/72 H 99 04/09/20 10:30 97.7 F 56 L 12 162/71 H 99 04/09/20 10:15 58 L 15 166/82 H 99 04/09/20 10:00 56 L 14 161/77 H 99 04/09/20 09:50 97.5 F L 58 L 14 163/81 H 100 04/09/20 09:40 63 19 164/75 H 98 04/09/20 09:30 67 16 169/88 H 100 04/09/20 09:20 75 27 H 177/88 H 100 04/09/20 09:10 97.5 F L 81 16 169/86 H 98 04/09/20 06:39 97.5 F L 65 18 168/87 H 99 PG Care Time/CCT Total # of Minutes Spent Total Time Spent with Patient: Total time spent is greater than 50% in coordination of care (as documented) at patient's floor/unit and/or counseling patient: Coding Level of Care Code 65852 Subseq Hosp Care Lvl 2 Diagnoses Neurogenic claudication due to lumbar spinal stenosis M48.062 Multi-vessel coronary artery stenosis I25.10 Cardiomyopathy I42.9 DVT prophylaxis Z29.9 Hypertension I10 Dyslipidemia E78.5
[2020-04-09] MEDS: ceFAZolin 1000MG 1,000 MG/7.5 ML SYR IV SCH (16:33)
[2020-04-09] MEDS: DOCUSATE SODIUM/SENNA 50/8.6MG TAB PO SCH ×2 (20:50→20:53)
[2020-04-09] MEDS ORDERED: SIMVASTATIN 40 MG TAB PO SCH (21:00)
[2020-04-10] MEDS: ceFAZolin 1000MG 1,000 MG/7.5 ML SYR IV SCH (00:25)
[2020-04-10] MEDS: POLYETHYLENE (MIRALAX) 17 GM PACK PO SCH ×2 (05:23→12:16)
[2020-04-10] MEDS: CHOLECALCIFEROL 1,000 UNITS 25 MCG TAB PO SCH (09:19)
[2020-04-10] MEDS: ASPIRIN 81 MG ECTAB PO SCH (09:19)
[2020-04-10] MEDS: MULTIVITAMIN TAB PO SCH (09:20)
[2020-04-10] MEDS: carvediloL 12.5 MG TAB PO SCH (09:20)
--- NOTE | 2020-04-10 10:46 | Discharge Summary ---
Date of Service April 10, 2020 Admission HPI Per Admitting Provider This is an 85-year-old male who presents with chronic persistent back and bilateral leg pain. Failing course of nonoperative care is here for surgical invention. Principal Diagnosis Lumbar spinal stenosis with neurogenic claudication Discharge Data Allergies Allergy/AdvReac Type Severity Reaction Status Date / Time No Known Allergies Allergy Verified 04/09/20 06:52 Consultations 04/09/20 13:19 Consult Hospitalist Routine Procedures Performed Operation Date: 04/09/20 07:45 Actual Procedures p L3-L4 Decompression with Coflex(Not Applicable) - Jakob Saunders DO Ordered Studies 04/09/20 07:00 FL fluoroscopy <1hr Routine FL spine 1V any level Routine Hospital Course (1) Neurogenic claudication due to lumbar spinal stenosis: Patient went lumbar decompression Coflex implantation tolerates well second orthopedic for postoperative. Postop day #1 he was ambulating well good strength testing pain well controlled. Subsequently discharged home. Discharge orders instructions from the chart for further review. Total Time Total Time Spent Total Time Spent (In Minutes): 20 minutes Discharge Plan Discharge Items Patient Disposition: Home - Self-Care Reason For Visit: Spinal Stenosis, Lumbar Region with Neurogenic Cla Discharge Diagnosis: Lumbar spinal stenosis with neurogenic claudication Activity: As commented below Non-emergency contact: Primary Care Provider Call non-emergency contact if: you have any medication questions Follow-up/Referrals: Kamar Berry MD [Primary Care Provider] - Diet: Regular Addtl Attending Provider Instructions: ACTIVITY RECOMMENDATIONS: SELF CARE INSTRUCTIONS AFTER A LAMINECTOMY 1. No prolonged sitting (less than 30 minutes for the first 3 weeks after surgery). 2. No bending, lifting more than 5 pounds, or twisting (roll like a log when turning in bed). 3. You may shower 3 days after surgery if no drainage from wound. Thoroughly dry wound. Do not soak in the tub. 4. Please walk as much as you can for exercise. Gradually increase the distance that you walk as your endurance increases. 5. You may drive in 7-10 days if you are comfortable and no longer requiring pain medications. SPECIAL CARE INSTRUCTIONS: VERY IMPORTANT TO READ AND REVIEW A. Your surgical incision has been closed with a cosmetic suture under the skin that will dissolve in about 6 weeks. In 14 days, you can use a pair of clean scissors and cut the suture that is left outside of the skin at the ends of your incision. B. Complications are uncommon, but please contact us if you have any signs or symptoms of: 1. wound infection (fever higher than 102.5 degrees F, redness, separation of wound, drainage, or increasing pain from the incision) 2. blood clots in legs (pain, swelling, redness and warmth in legs) 3. urinary tract infection (fever higher than 102.5 degrees, burning upon urination or increased frequency of urination) 4. nerve problems (inability to walk on your toes or heels, numbness, loss of bowel or bladder control) 5. any other symptoms that concern you. C. Please call the office at if you have any concerns or questions about your operation or recovery. MANAGING PAIN AFTER SPINAL SURGERY 1. Narcotic medication is intended for short-term use and will be provided for surgical pain. Surgical pain usually lasts for a period of 4-6 weeks. Narcotic medication includes Percocet, Vicodin, Darvocet, Tylenol #3 or Lortab. 2. Longer-term pain is more appropriately treated with non-narcotic medication such as Tylenol ES. 3. Muscle spasm is not appropriately treated with narcotics. Muscle relaxers such as Soma, Flexeril or Skelaxin can be used along with Tylenol ES. 4. Remember that we all live with some "aches and pains". This is not unusual or uncommon after an injury or as we get older. 5. We will provide appropriate medication within the normal guidelines of their prescribed use. We will also be very cautious and aware of potential abuse and extended duration of patients' medication needs. 6. Please allow 2-3 days to process refills. Prescriptions will not be mailed but must be picked up at the office. FOLLOW UP VISIT: Keep your scheduled follow-up appointment. Any questions, please call the office at . Pending Studies at Discharge: No Stand-Alone Forms: My [employer], Smoking Cessation Medications and DC Order Prescriptions: New tramadol 50 mg tablet 50 mg PO Q6H PRN (Reason: pain, moderate) Qty: 20 RF: 0 oxycodone 5 mg tablet 5 mg PO Q6H PRN (Reason: pain, severe) Qty: 10 RF: 0 Continued carvedilol 12.5 mg tablet 12.5 mg PO BID Qty: 180 RF: 3 cholecalciferol (vitamin D3) 2,000 unit tablet 1,000 unit PO QAM RF: 0 aspirin 81 mg Tablet,Delayed Release (Dr/Ec) 81 mg PO QAM RF: 0 simvastatin 40 mg tablet 40 mg PO HS RF: 0 multivitamin [Multiple Vitamins] Tablet 1 tab PO QAM RF: 0 diclofenac sodium [Voltaren] 1 % Gel 2 g EXT QID PRN (Reason: back pain) Qty: 100 RF: 0 warfarin 2 mg Tablet 2 - 3 mg PO QAM RF: 0 Discharge Orders: Discharge Order (Routine); Ordered 04/10/20 Ordered By: Jakob Saunders Admission Data Admit Date/Time: 04/09/20 09:23 Attending Provider: Jakob Saunders Admit Provider: Jakob Saunders Primary Care Provider: Kamar Berry Other Providers: Nish Fields
--- NOTE | 2020-04-10 15:52 | Hospitalist Progress Note ---
Date of Service April 10, 2020 Assessment & Plan (1) Neurogenic claudication due to lumbar spinal stenosis: post op, appearing stable. per ortho stable for home (2) Multi-vessel coronary artery stenosis: stable no angina continue home meds (3) Paroxysmal atrial fibrillation: rates good, off coumadin. resume once safe per ortho//follow w PCP (4) Cardiomyopathy: ischemic, with some regional wall motion abnormalities but preserved EF. no acute CHF noted (5) DVT prophylaxis: per ortho (SCD) (6) Hypertension: follow BP - reasonable to situation. continue current meds (d/w pt bp sl up - likely situational - no need to alter meds right now - follow w PCP) (7) Dyslipidemia: Admission and Anticipated Discharge Date Admission Date: April 09, 2020 Subjective feeling pretty good overall is a nina. pain reasonable control did very well w PT per pt d/w ortho Review of Systems Review of Systems: All systems reviewed & are unremarkable except as noted in HPI & below Physical Exam Physical Exam: gen aaox3 pleasant nad heent nc at mmm breathing unlabored no accessory muscles good effort skin no rashes no pallor or icterus neuro no focal deficits Results & Data Results & Data ([facility]) Vital Signs (Past 12 Hours) Vital Signs Temp Pulse Pulse Resp BP BP Pulse Ox 04/10/20 11:34 97.5 F L 67 69 16 152/69 H 156/78 H 97 04/10/20 10:25 97.5 F L 69 16 152/69 H 97 04/10/20 07:16 97.7 F 62 16 169/73 H 98 PG Care Time/CCT Total # of Minutes Spent Total Time Spent with Patient: Total time spent is greater than 50% in coordination of care (as documented) at patient's floor/unit and/or counseling patient: Coding Level of Care Code 84924 Subseq Hosp Care Lvl 2 Diagnoses Neurogenic claudication due to lumbar spinal stenosis M48.062 Multi-vessel coronary artery stenosis I25.10 Paroxysmal atrial fibrillation I48.0 Cardiomyopathy I42.9 DVT prophylaxis Z29.9 Hypertension I10 Dyslipidemia E78.5
== END 2020-04-10 12:58 | disposition home or self-care (01) | DRG 518 ==
LOC: ASU 06:23 → 3N 09:23